=== PATIENT | female | born 1935 | race African-American/Black ===

== ENCOUNTER → 2016-04-13 | Outpatient (CLI) | payer MEDICARE | LOC: WI 13:10 | PROVIDERS: ATTEND Internal Medicine Geriatric Medicine | DX: Z12.31 Encounter for screening mammogram for malignant neoplasm of breast (principal) | CPT/HCPCS: 77067; G0202 ==

== ENCOUNTER → 2017-08-04 | Outpatient (CLI) | payer MEDICARE ==
--- NOTE | 2017-08-09 17:07 | RADIOLOGY REPORT (SQ) ---
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 Coronal T2/HASTE imaging. CONTRAST TYPE AND DOSE: 15 mL Multihance. RENAL FUNCTION: Estimated GFR 55 LIMITATIONS: None. 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 SEGMENTATION: No transitional anatomy. The lowest well-developed disc space is labeled L5-S1. ALIGNMENT: Minimal anterolisthesis of L4 over L5. VERTEBRAE: Intact. No fractures. BONE MARROW: Age-appropriate fatty marrow changes DISC SIGNAL: Diffuse decreased T2 weighted intervertebral disc signal POSTERIOR ELEMENTS: Post bilateral laminectomy at L5 HARDWARE: Bilateral transpedicular screws with dorsal fixation plates at L5 and S1. CORD AND CONUS: Normal in size and signal intensity. Conus at the appropriate level. SOFT TISSUES: No aortic aneurysm seen. No bulky retroperitoneal adenopathy or mass. No paraspinal mas s or fluid. T11-12: Unremarkable T12-L1: Unremarkable L1-L2: Unremarkable L2-L3: Mild central canal stenosis results from broad diffuse posterior disc bulging and bulky bilate ral facet and ligament hypertrophy. There is moderate to high-grade right foraminal narrowing and so me contrast enhancement of the right L2 nerve root. No significant left foraminal stenosis or left n erve root impingement. L3-L4: High-grade central canal stenosis is present at L3-4 related to broad diffuse posterior disc b ulging and bulky bilateral facet and ligament hypertrophy with prominent dorsal epidural fat. There is effacement of the CSF around the lumbar nerve roots best shown on sagittal T2 image 11. Moderate bilateral foraminal narrowing is present without definite exit L3 nerve root impingement. L4-L5: Mild grade 1 anterolisthesis of L4 over L5 is present. This finding along with broad diffuse disc bulge and bulky bilateral facet and ligament hypertrophy causes moderate central canal stenosis, best shown on axial T2 image 27. High-grade right and moderate left foraminal narrowing is present. There is right-sided L4 nerve root enhancement. L5-S1: Post bilateral laminectomy with disc space prosthesis and bilateral transpedicular screws with dorsal fixation plates. No central stenosis. Mild bilateral foraminal narrowing without definite e xiting L5 nerve root impingement. SACRUM: Visualized upper sacrum intact. ENHANCEMENT: Right L2 nerve root, right L4 nerve root enhancement. OTHER: No other significant findings. IMPRESSION: High-grade central canal stenosis at L3-4 Moderate central canal stenosis at L4-5 High-grade Right foraminal stenosis at L2-3 and L4-5. TECHNICAL DOCUMENTATION: JOB ID: [id number] [employer]- All Rights Reserved Reading location - IP/workstation name: [email or web address]
== END ==
LOC: RAD 19:59
PROVIDERS: ATTEND Physician Assistant
DX: M54.16 Radiculopathy, lumbar region (principal)
CPT/HCPCS: 72158; 82565

== ENCOUNTER → 2018-01-13 | Outpatient (CLI) | payer MEDICARE ==
--- NOTE | 2018-01-13 17:09 | WOMENS IMAGING REPORT ---
EXAM DESCRIPTION: 3D SCREENING MAMMO BILAT COMPLETED DATE/TIME: 01/13/2018 3:00 pm REASON FOR STUDY: ROUTINE BIALTERAL SCREENING;Z12.31 Z12.31 ENCNTR SCREEN MAMMOGRAM FOR MALIGNANT N EOPLASM OF YAN COMPARISON: Multiple since 2011 TECHNIQUE: Standard craniocaudal and mediolateral oblique views of each breast recorded using digita l acquisition and breast tomosynthesis. LIMITATIONS: None. FINDINGS: No masses, calcifications or architectural distortion. No areas of suspicion. Read with the assistance of CAD. .[facility] - R2 Cenova Version 1.3 .[facility] Imaging - R2 Cenova Version 1.3 .[facility] Imaging - R2 Cenova Version 2.4 .[facility] - R2 Cenova Version 2.4 .[facility] - R2 Data Security Coordinator Version 9.2 IMPRESSION: NORMAL MAMMOGRAM. BIRADS 1. BREAST DENSITY: b. There are scattered areas of fibroglandular density. BIRAD: 1 NEGATIVE RECOMMENDATION: ROUTINE SCREENING Please continue yearly bilateral screening mammography/tomosynthesis in December 2018 COMMENT: The patient has been notified of the results by letter per SA requirements. Additional no tification policies are in place for contacting patient with suspicious or incomplete findings. Quality ID #[id number]: The [employer] recommends an annual screening mammogram for women aged 40 years or over. This facility utilizes a reminder system to ensure that all patients receive reminder letters, and/or direct phone calls for appointments. This includes reminders for routine scr eening mammograms, diagnostic mammograms, or other Breast Imaging Interventions when appropriate. Th is patient will be placed in the appropriate reminder system. The [employer] (ACR) has developed recommendations for screening MRI of the breast s in certain patient populations, to be used in conjunction with mammography. Breast MRI surveillanc e may be appropriate for women with more than 20% lifetime risk of developing breast cancer as deter mined by genetic testing, significant family history of the disease, or history of mantle radiation f or Hodgkins Disease. ACR Practice Guidelines 2008. DBT Technology DBT is a type of tomographic mammography. With conventional mammography, overlapping breast tissue ma y make lesions difficult to detect, even with good compression. DBT uses an x-ray tube that rotates a round the breast, taking images at different angles. These images are then combined to create thin sl ices of the breast that the radiologist can view as a 3D reconstruction. The [employer] unit can perform full-field digital mammograms (2D imaging); or DBT (3D imaging); or both, in a combination mode that quickly performs both the mammogram and the tomosynthesis scan while the breast is still compressed. PQRS 6045F: Fluoroscopic imaging is not utilized for breast tomosynthesis. TECHNICAL DOCUMENTATION: FINDING NUMBER: (1) ASSESSMENT: (1) JOB ID: [id number] [employer]- All Rights Reserved Reading location - IP/workstation name: [facility]
== END ==
LOC: WI 14:45
PROVIDERS: ATTEND Internal Medicine Geriatric Medicine
DX: Z12.31 Encounter for screening mammogram for malignant neoplasm of breast (principal)
CPT/HCPCS: 77063; 77067

== ENCOUNTER → 2018-02-27 | Outpatient (CLI) | payer MEDICARE ==
--- NOTE | 2018-02-27 13:37 | RADIOLOGY REPORT (SQ) ---
EXAM DESCRIPTION: L SPINE FLEX/EXT ONLY COMPLETED DATE/TIME: 02/27/2018 1:21 pm REASON FOR STUDY: LUMBAR RADICULOPATHY (M54.16) M54.16 RADICULOPATHY, LUMBAR REGION COMPARISON: None. NUMBER OF VIEWS: Two view. TECHNIQUE: Lateral views of the lumbar spine with flexion and extension. LIMITATIONS: None. FINDINGS: MINERALIZATION: Normal. SEGMENTATION: Normal. No transitional anatomy. ALIGNMENT: Grade 1 anterolisthesis of L4 on L5. FLEXION/EXTENSION: No instability. VERTEBRAE: Maintained height. No fracture or worrisome bone lesion. DISCS: Multilevel disc space narrowing. POSTERIOR ELEMENTS: Pedicles and facets are intact. No pars defect or posterior arch defects. HARDWARE: Posterior hardware at L5-S1. OTHER: No other significant finding. IMPRESSION: GRADE 1 ANTEROLISTHESIS OF L4 ON L5. MULTILEVEL DEGENERATIVE DISC DISEASE. SURGICAL ANN RDWARE. NO INSTABILITY ON FLEXION/EXTENSION. TECHNICAL DOCUMENTATION: JOB ID: [id number] [employer]- All Rights Reserved Reading location - IP/workstation name: [facility]-RR
== END ==
LOC: RAD 12:45
PROVIDERS: ATTEND Specialist
DX: M51.16 Intervertebral disc disorders with radiculopathy, lumbar region (principal)
CPT/HCPCS: 72120

== ENCOUNTER 2018-04-14 08:59 | Inpatient (IN) | payer MEDICARE ==
[2018-04-14] MEDS ORDERED: MORPHINE SULFATE 10 MG/ML INJ IV ONE ×3 (09:46→15:11)
[2018-04-14] MEDS ORDERED: NORMAL SALINE 500 ML IV ONE ×2 (09:46→13:06)
[2018-04-14] MEDS ORDERED: ONDANSETRON HCL INJ/PF 4 MG/2 ML SDV IV ONE (09:46)
[2018-04-14] MEDS ORDERED: DIPHENHYDRAMINE HCL 50 MG/ML VIAL IV ONE (09:47)
[2018-04-14 09:57] LABS: ABSOLUTE EOSINOPHILS # (AUTO) 0.1 10^3/uL (0.0-0.6); ABSOLUTE LYMPHOCYTES (AUTO) 2.5 10^3/uL (0.5-4.7); ABSOLUTE NEUT (AUTO) 11.6 10^3/uL (1.7-8.2); BASOPHILS % (AUTO) 0.3 % (0-2); EOSINOPHILS % (AUTO) 0.8 % (0-6); HEMATOCRIT 29.3 % (36.0-47.0); HEMOGLOBIN 9.6 g/dL (12.0-15.5); LYMPHOCYTES % (AUTO) 16.4 % (13-45); MEAN CORPUSCULAR HEMOGLOBIN 26.1 pg (27.0-33.4); MEAN CORPUSCULAR HGB CONC 32.7 g/dL (32.0-36.0); MEAN CORPUSCULAR VOLUME 80 fl (80-97); MONOCYTES % (AUTO) 6.4 % (3-13); PLATELET COUNT 558 10^3/uL (150-450); RED BLOOD COUNT 3.67 10^6/uL (3.72-5.28); RED CELL DISTRIBUTION WIDTH 15.4 % (11.5-14.0); SEGMENTED NEUTROPHILS % (AUTO) 76.1 % (42-78); TOTAL CELLS COUNTED % (AUTO) 100 %; WHITE BLOOD COUNT 15.3 10^3/uL (4.0-10.5)
[2018-04-14 10:03] LABS: ANION GAP 14 (5-19); BLOOD UREA NITROGEN 18 mg/dL (7-20); CALCIUM 8.9 mg/dL (8.4-10.2); CARBON DIOXIDE 25 mmol/L (22-30); CHLORIDE 93 mmol/L (98-107); GLUCOSE 143 mg/dL (75-110); POTASSIUM 3.6 mmol/L (3.6-5.0)
--- NOTE | 2018-04-14 10:53 | RADIOLOGY REPORT (SQ) ---
EXAM DESCRIPTION: KUB/ABDOMEN (SINGLE VIEW) COMPLETED DATE/TIME: 04/14/2018 10:43 am REASON FOR STUDY: no bp for one week COMPARISON: None. NUMBER OF VIEWS: One view. TECHNIQUE: Supine radiographic image of the abdomen acquired. LIMITATIONS: None. FINDINGS: BOWEL GAS PATTERN: Gas and stool dilated ascending colon measuring up to 10 point 0 cm. N o additional evidence of pathologically dilated loops of bowel. Stool mellitus sigmoid colon. Gas w ithin the distal rectum. CALCIFICATIONS: No radiopaque calculi overlie kidneys or expected course of ureters. Aortic atherosc lerosis. SOFT TISSUES: No evidence of large volume ascites or organomegaly. HARDWARE: Posterior fusion hardware extending from L3-S1. Bilateral iliac vascular stents. BONES: No acute fracture. No worrisome bone lesions. Posterior spinal fusion hardware. OTHER: No other significant finding. IMPRESSION: Mildly dilated gas and stool containing ascending colon. Additional stool noted through out the sigmoid colon. TECHNICAL DOCUMENTATION: JOB ID: [id number] [employer]- All Rights Reserved Reading location - IP/workstation name: [email or web address]
[2018-04-14] MEDS ORDERED: LIDOCAINE 2% URO-JET 5 ML KIT MM ONE (11:22)
[2018-04-14] MEDS ORDERED: LORAZEPAM INJ 2 MG/1 ML VIAL IV ONE (11:22)
[2018-04-14] MEDS ORDERED: MAGNESIUM CITRATE 296 ML BOTTLE PO ONE (13:37)
--- NOTE | 2018-04-14 13:42 | ER Document Report ---
ED General - General Chief Complaint: Back Pain Stated Complaint: BACK PAIN Time Seen by Provider: 04/14/18 09:10 Primary Care Provider: PATRICIA SR MD [Primary Care Provider] - Follow up tomorrow TRAVEL OUTSIDE OF THE [place] IN LAST 30 DAYS: No - HPI Patient complains to provider of: Back pain Notes: Patient coming in for increased back pain patient is coming in from local long-term rehab facility from here for increased back pain patient has a back fusion performed at [facility] on April 04, 2018 at that time patient had postoperative urinary retention and indwelling Cadet catheter was placed patient was discharged to the nursing care facility patient was sent over for increased back pain upon my evaluation patient states pain is coming in waves patient was states that he comes another episode and would not yell and pain. During his episodes patient was moving all 4 extremities. Patient denies any numbness or tingling. Patient states that she has not had a bowel movement approximately 1 week. Patient is on [place] at the rehab facility states that her pain medication is not controlling her pain at this time. Patient denies any nausea vomiting denies any abdominal pain denies any chest pain. Patient is otherwise lying on the left lateral recumbent position upon my evaluation. - Related Data Allergies/Adverse Reactions: tramadol HCl [From [facility]] Allergy (Unknown, Verified 10/18/12 15:46) chest /esophageal discomfort cranberry juice Allergy (Severe, Uncoded 10/18/12 15:46) rash/blisters Past Medical History - Social History Smoking Status: Unknown if Ever Smoked Family History: Reviewed & Not Pertinent Patient has suicidal ideation: No Patient has homicidal ideation: No - Past Medical History Cardiac Medical History: Reports: Hx Hypertension - 3 months meds Denies: Hx Atrial Fibrillation, Hx Congestive Heart Failure, Hx Coronary Artery Disease, Hx Heart Attack, Hx Hypercholesterolemia, Hx Peripheral Vascular Disease, Hx Heart Murmur Neurological Medical History: Denies: Hx Cerebrovascular Accident, Hx Seizures Renal/ Medical History: Denies: Hx End Stage Renal Disease, Hx Kidney Stones, Hx Ovarian Cysts, Hx Peritoneal Dialysis, Hx Pelvic Inflammatory Disease Malignancy Medical History: Denies: Hx Breast Cancer, Hx Cervical Cancer, Hx Leukemia, Hx Ovarian Cancer GI Medical History: Reports: Hx Gastroesophageal Reflux Disease, Hx Hiatal Hernia. Denies: Hx Crohn's Disease, Hx Irritable Bowel, Hx Liver Failure, Hx Pancreatitis, Hx Ulcer Musculoskeletal Medical History: Reports Hx Arthritis - back,knees,shoulders,toes, Denies Hx Fibromyalgia, Denies Hx Multiple Sclerosis, Denies Hx Muscular Dystrophy Psychiatric Medical History: Denies: Hx Dementia Traumatic Medical History: Denies: Hx Fractures Infectious Medical History: Denies: Hx HIV Past Surgical History: Reports: Hx Abdominal Surgery, Hx Appendectomy, Hx Bowel Surgery - perforation during laparoscopy, Hx Hysterectomy, Hx Orthopedic Surgery, Hx Tubal Ligation. Denies: Hx Section, Hx Cholecystectomy, Hx Colostomy, Hx Coronary Artery Bypass Graft, Hx Gastric Bypass Surgery, Hx Herniorrhaphy, Hx Mastectomy, Hx Pacemaker, Hx Tonsillectomy - Immunizations Hx Diphtheria, Pertussis, Tetanus Vaccination: Yes Review of Systems - Review of Systems Constitutional: No symptoms reported EENT: No symptoms reported Cardiovascular: No symptoms reported Respiratory: No symptoms reported Gastrointestinal: No symptoms reported Genitourinary: No symptoms reported Female Genitourinary: No symptoms reported Musculoskeletal: Back pain Skin: No symptoms reported Hematologic/Lymphatic: No symptoms reported Neurological/Psychological: No symptoms reported -: Yes All other systems reviewed and negative Physical Exam - Vital signs Vitals: BP Pulse Ox 143/86 H 99 04/14/18 09:05 04/14/18 09:05 Interpretation: Normal - General General appearance: Appears well, Alert - HEENT Head: Normocephalic, Atraumatic Eyes: Normal Conjunctiva: Normal Cornea: Normal Pupils: PERRL Pharynx: Normal Neck: Normal. No: Brudzinski, Meningismus - Respiratory Respiratory status: No respiratory distress Chest status: Nontender Breath sounds: Normal Chest palpation: Normal - Cardiovascular Rhythm: Regular Heart sounds: Normal auscultation Murmur: No - Abdominal Inspection: Normal Distension: No distension Bowel sounds: Normal Tenderness: Nontender Organomegaly: No organomegaly - Rectal Notes: Rectal tone is intact intact patient does complain of pain when performing the rectal examination sensation is intact around the perianal region. There is no stool impaction - Back Back: Normal, Nontender Notes: Midline surgical incision well-healed no signs of any purulent drainage no signs of infection - Extremities General upper extremity: Normal inspection, Nontender, Normal color, Normal ROM, Normal temperature General lower extremity: Normal inspection, Nontender, Normal color, Normal ROM, Normal temperature - Neurological Neuro grossly intact: Yes Cognition: Normal Orientation: AAOx4 [place] Coma Scale Eye Opening: Spontaneous [place] Coma Scale Verbal: Oriented [place] Coma Scale Motor: Obeys Commands [place] Coma Scale Total: 15 Speech: Normal Cranial nerves: Normal Motor strength normal: LUE, RUE, LLE, RLE Additional motor exam normals: Equal photograph inspector Babinski reflex: Normal (flexor plantar) Sensory: Normal Knee - Reflex grade: 2 = Normal - Psychological Associated symptoms: Normal affect, Normal mood - Skin Skin Temperature: Warm Skin Moisture: Dry Skin Color: Normal Course - Re-evaluation Re-evalutation: 04/14/18 15:28 Patient laboratory studies shows a slight leukocytosis patient is currently on some steroids. Patient because of the spasticity of her pain and history of no bowel movement in 1 week a KUB was performed this does show dilation of the right side of the colon. Rectal exam was performed looking for signs of a impaction however this was negative. She was given morphine which did seem to help out her pain. Initially presented afebrile was given IV fluids discussed with PCP recommend hydration and initiation of Linzess mag citrate discharged back to the nursing care facility for constipation due to her opiate use. Did initially discuss this with family states understanding. Patient neurologically intact moving all 4 extremities sensation intact no numbness or tingling the perineal region no meningeal signs While waiting for transportation back to nursing care facility patient became increasingly tachycardic. Recheck of the patient's vital signs are now fever of 102.3. Patient does have some slight change in her mental status more confusion which may be due to pain medication versus underlying infectious etiology. Chest x-ray was performed urinalysis performed did recontact PCP who agrees at this time patient will benefit from observation IV antibiotics. Will update family 04/14/18 15:30 - Vital Signs Vital signs: Temp Pulse Resp BP Pulse Ox 102.4 F H 123 H 24 H 146/68 H 100 04/14/18 15:06 04/14/18 09:18 04/14/18 11:02 04/14/18 10:04 04/14/18 11:12 - Laboratory Result Diagrams: 04/14/18 09:09 04/14/18 09:09 Laboratory results interpreted by me: 04/14/18 04/14/18 09:09 09:09 WBC 15.3 H RBC 3.67 L Hgb 9.6 L Hct 29.3 L MCH 26.1 L RDW 15.4 H Plt Count 558 H Absolute Neutrophils 11.6 H Sodium 132.0 L Chloride 93 L Est GFR (Non-Af Amer) 54 L Glucose 143 H Discharge - Discharge Clinical Impression: Postoperative back pain, Constipation due to opioid therapy, pneumonia right sided Fever Qualifiers: Fever type: unspecified Qualified Code(s): R50.9 - Fever, unspecified Condition: Good Disposition: ADMITTED OBSERVATION Admitting Provider: [facility] Admitted: Telemetry Instructions: Chronic Back Pain ([facility]), Constipation ([facility]) Additional Instructions: Patient was seen and worked up here in ER. Physical examination does not reveal any acute neurological findings. Patient is moving her lower extremities deep tendon reflexes are intact Babinski is appropriate. Patient's abdominal x-ray shows marked constipation. Rectal examination did not reveal any rectal impaction of stool The case was discussed with Dr. Sr will agree to get the patient back citrate and also start the patient on Linzess. Prescriptions: Linaclotide [Linzess] 72 mcg PO DAILY #14 capsule Referrals: PATRICIA SR MD [Primary Care Provider] - Follow up tomorrow
[2018-04-14] MEDS ORDERED: ACETAMINOPHEN 325 MG SUPP.RECT PR ONE (15:10)
[2018-04-14] MEDS ORDERED: NORMAL SALINE 1000 ML 1,000 ML IV ONE (15:25)
--- NOTE | 2018-04-14 15:34 | RADIOLOGY REPORT (SQ) ---
EXAM DESCRIPTION: CHEST SINGLE VIEW COMPLETED DATE/TIME: 04/14/2018 3:23 pm REASON FOR STUDY: sob COMPARISON: None. EXAM PARAMETERS: NUMBER OF VIEWS: One view. TECHNIQUE: Single frontal radiographic view of the chest acquired. RADIATION DOSE: NA LIMITATIONS: None. FINDINGS: LUNGS AND PLEURA: Patchy right mid lung airspace disease. Likely trace right effusion. N o pneumothorax. MEDIASTINUM AND HILAR STRUCTURES: No masses. Contour normal. HEART AND VASCULAR STRUCTURES: Normal heart size. Atherosclerotic aorta. BONES: No acute findings. HARDWARE: None in the chest. OTHER: No other significant finding. IMPRESSION: Patchy opacities within the right mid lung suggestive of pneumonia. TECHNICAL DOCUMENTATION: JOB ID: [id number] [employer]- All Rights Reserved Reading location - IP/workstation name: [email or web address]
[2018-04-14] MEDS ORDERED: LEVOFLOXACIN 500 MG/D5W RTU 500 MG/100 ML RTUPB IV ONE (15:35)
[2018-04-14] MEDS ORDERED: METOCLOPRAMIDE HCL INJ/PF 10 MG/2 ML SDV IV ONE (15:58)
[2018-04-14] MEDS ORDERED: HYDROCODONE/ACETAMINOPHEN 5-325 MG TABLET PO PRN (18:13)
[2018-04-14] MEDS ORDERED: VANCOMYCIN HCL 0 MG in DEXTROSE 5%-WATER 250 ML IV NR (18:15)
[2018-04-14 18:28] LABS: APPEARANCE,URINE CLOUDY; BILIRUBIN,URINE NEGATIVE (NEGATIVE); COLOR,URINE YELLOW; GLUCOSE, URINE NEGATIVE (NEGATIVE); KETONES,URINE NEGATIVE (NEGATIVE); LEUKOCYTE ESTERASE,URINE MODERATE (NEGATIVE); NITRITE,URINE POSITIVE (NEGATIVE); PROTEIN,URINE 30 mg/dL (NEGATIVE); TRIPLE PHOSPHATE CRYSTAL,URINE MANY /HPF; URINE SPECIFIC GRAVITY 1.014
[2018-04-14] MEDS ORDERED: POLYETHYLENE GLYCOL 3350 POWDER 17 GM/1 PACKET PO SCH (19:00)
[2018-04-14] MEDS: NORMAL SALINE 1000 ML 1,000 ML IV PRN (20:28)
[2018-04-14] MEDS ORDERED: VANCOMYCIN HCL 1,500 MG in DEXTROSE 5%-WATER 250 ML IV SCH (22:00)
[2018-04-14] MEDS: LUBIPROSTONE 24 MCG CAPSULE PO SCH (23:27)
[2018-04-14] MEDS: GABAPENTIN 300 MG CAPSULE PO SCH (23:27)
[2018-04-14] MEDS: POLYETHYLENE GLYCOL 3350 POWDER 17 GM/1 PACKET PO SCH (23:28)
[2018-04-14] MEDS ORDERED: METHOCARBAMOL 750 MG TABLET ONE (23:55)
[2018-04-14] MEDS ORDERED: CEFEPIME 2 GM/D5W RTU 2 GM/50 ML RTUPB IV ONE (23:55)
[2018-04-15] MEDS: METHOCARBAMOL 750 MG TABLET PO SCH ×5 (00:21→21:23)
[2018-04-15] MEDS: CEFEPIME 2 GM/D5W RTU 2 GM/50 ML RTUPB IV SCH ×3 (00:21→21:22)
[2018-04-15] MEDS: MORPHINE SULFATE 10 MG/ML INJ IV PRN ×4 (00:23→20:26)
[2018-04-15] MEDS: VANCOMYCIN HCL 1,500 MG in DEXTROSE 5%-WATER 250 ML IV SCH ×2 (01:31→22:14)
[2018-04-15] MEDS: POLYETHYLENE GLYCOL 3350 POWDER 17 GM/1 PACKET PO SCH ×2 (02:47→06:07)
[2018-04-15 05:06] LABS: ABSOLUTE LYMPHOCYTES (AUTO) 0.8 10^3/uL (0.5-4.7); ABSOLUTE MONOCYTES (AUTO) 0.6 10^3/uL (0.1-1.4); ABSOLUTE NEUT (AUTO) 9.4 10^3/uL (1.7-8.2); BASOPHILS % (AUTO) 0.2 % (0-2); HEMOGLOBIN 8.9 g/dL (12.0-15.5); LYMPHOCYTES % (AUTO) 7.7 % (13-45); MEAN CORPUSCULAR HEMOGLOBIN 26.4 pg (27.0-33.4); MEAN CORPUSCULAR HGB CONC 34.2 g/dL (32.0-36.0); MEAN CORPUSCULAR VOLUME 77 fl (80-97); MONOCYTES % (AUTO) 5.4 % (3-13); PLATELET COUNT 408 10^3/uL (150-450); RED BLOOD COUNT 3.37 10^6/uL (3.72-5.28); RED CELL DISTRIBUTION WIDTH 15.4 % (11.5-14.0); SEGMENTED NEUTROPHILS % (AUTO) 86.7 % (42-78); TOTAL CELLS COUNTED % (AUTO) 100 %; WHITE BLOOD COUNT 10.9 10^3/uL (4.0-10.5)
[2018-04-15 05:34] LABS: ALANINE AMINOTRANSFERASE 42 U/L (9-52); ALKALINE PHOSPHATASE 62 U/L (38-126); ANION GAP 10 (5-19); ASPARTATE AMINO TRANSFERASE 87 U/L (14-36); BILIRUBIN,DIRECT 0.5 mg/dL (0.0-0.4); BILIRUBIN,TOTAL 0.9 mg/dL (0.2-1.3); BLOOD UREA NITROGEN 20 mg/dL (7-20); CALCIUM 8.4 mg/dL (8.4-10.2); CARBON DIOXIDE 24 mmol/L (22-30); CHLORIDE 98 mmol/L (98-107); GLUCOSE 140 mg/dL (75-110); POTASSIUM 3.9 mmol/L (3.6-5.0); SODIUM 132.4 mmol/L (137-145); TOTAL PROTEIN 5.9 g/dL (6.3-8.2)
[2018-04-15] MEDS: GABAPENTIN 300 MG CAPSULE PO SCH ×3 (06:07→21:23)
[2018-04-15] MEDS: LANSOPRAZOLE 30 MG TAB.RAP.DR PO SCH (06:07)
[2018-04-15] MEDS ORDERED: LEVOFLOXACIN 500 MG/D5W RTU 500 MG/100 ML RTUPB IV SCH (10:00)
[2018-04-15] MEDS: ENOXAPARIN SODIUM INJ 40 MG/0.4 ML DISP.SYRIN SUBCUT SCH (10:12)
[2018-04-15] MEDS: NORMAL SALINE 1000 ML 1,000 ML IV PRN (10:12)
[2018-04-15] MEDS: LUBIPROSTONE 24 MCG CAPSULE PO SCH ×2 (10:12→21:23)
[2018-04-15] MEDS: LEVOFLOXACIN 750 MG/D5W RTU 750 MG/150 ML RTUPB IV SCH (10:13)
--- NOTE | 2018-04-15 17:20 | PDOC H&P ---
History of Present Illness Admission Date/PCP: 04/14/18 16:10 [facility] Patient complains of: Back pain History of Present Illness: LULY VERDIN is a 82 year old female known to my practice who underwent lumbar fusion surgery for degenerative disc disease with chronic back pain at [facility]. She was transferred to [facility] for short term rehabilitation. She was transferred from the SNF due to her persistent complain of worsening intermittent back pain despite administration of her prescribed pain medication. There was concern about pain medication inadequacy for her pain management. There was report of lack of bowel movement for couple of days. She denied any nausea, vomiting, or abdominal pain. She reported fairly adequate food and fluid intake. Her initial evaluation in the ED was remarkable for abdominal KUB that revealed right sided ascending colon dilatation and rectal examination without fecal impaction. Her initial management include IV fluid and pain medication management. Her subsequent evaluation revealed temperature of 102.3F with leukocytosis and altered mental status. In view of the latter development her initial plan to return to SNF with Linzess and Mag Citrate administration was cancelled and she was advised admission to observation bed. Subsequent chest X ray revealed right middle lobe airspace disease process raising concern for hospital acquired pneumonia in view of her recent surgery and SNF environment exposure. Her morbidities include hypertension, GERD, Osteoarthritis, and degenerative disc disease with chronic back pain s/p spinal fusion surgery on 04/04/2018. Past Medical History Cardiac Medical History: Reports: Hypertension - 3 months meds Denies: Atrial Fibrillation, Congestive Heart Failure, Coronary Artery Disease, Myocardial Infarction, Hyperlipidema, Peripheral Vascular Disease, Heart Murmur Neurological Medical History: Denies: Seizures Renal/ Medical History: Denies: End Stage Renal Disease Malignancy Medical History: Denies: Breast Cancer, Cervical Cancer, Leukemia, Ovarian Cancer GI Medical History: Reports: Gastroesophageal Reflux Disease, Hiatal Hernia Denies: Crohn's Disease Musculoskeltal Medical History: Reports: Arthritis - back,knees,shoulders,toes Denies: Fibromyalgia Psychiatric Medical History: Denies: Dementia Hematology: Reports: Anemia - hx of Denies: Hemophilia, Sickle Cell Disease Infectious Medical History: Denies: HIV Past Surgical History Past Surgical History: Reports: Appendectomy, Hysterectomy, Orthopedic Surgery, Tubal Ligation Denies: Amputation, Section, Cholecystectomy, Colostomy, Coronary Artery Bypass Graft, Gastric Bypass Surgery, Herniorrhaphy, Mastectomy, Pacemaker, Tonsillectomy Social History Smoking Status: Unknown if Ever Smoked Hx Recreational Drug Use: No Hx Prescription Drug Abuse: No Family History Family History: Reviewed & Not Pertinent Parental Family History Reviewed: Yes Children Family History Reviewed: Yes Sibling(s) Family History Reviewed.: Yes Medication/Allergy Home Medications: Gabapentin [Neurontin 300 mg Capsule] 300 mg PO Q8 04/14/18 Hydrochlorothiazide [Hydrodiuril 25 mg Tablet] 25 mg PO DAILY 04/14/18 Hydrocodone/Acetaminophen [[place] 5-325 mg Tablet] 1 tab PO BIDP PRN 04/14/18 Hydroxyzine HCl [Atarax 50 mg Tablet] 50 mg PO TIDP PRN 04/14/18 Meloxicam [Mobic] 15 mg PO DAILY 04/14/18 Pantoprazole Sodium [Protonix] 40 mg PO DAILY 04/14/18 Allergies/Adverse Reactions: tramadol HCl [From Ultram] Allergy (Unknown, Verified 10/18/12 15:46) chest /esophageal discomfort cranberry juice Allergy (Severe, Uncoded 10/18/12 15:46) rash/blisters Review of Systems ROS unobtainable: Due to mental status - at he time of my evalutaion in the ED post IV Morphine and benadryl administration Physical Exam Vital Signs: Temp Pulse Resp BP Pulse Ox 102.4 F H 123 H 24 H 103/66 93 04/14/18 17:12 04/14/18 09:18 04/14/18 16:01 04/14/18 17:01 04/14/18 17:01 Intake & Output 04/13/18 04/14/18 04/15/18 06:59 06:59 06:59 Intake Total 1000 Output Total 530 Balance 470 General appearance: PRESENT: obese Head exam: PRESENT: atraumatic, normocephalic Eye exam: PRESENT: conjunctiva pink, EOMI, PERRLA. ABSENT: scleral icterus Ear exam: PRESENT: normal external ear exam Mouth exam: PRESENT: moist Neck exam: PRESENT: full ROM. ABSENT: carotid bruit, JVD, lymphadenopathy, thyromegaly Respiratory exam: PRESENT: clear to auscultation izabella, decreased breath sounds - at lung bases Cardiovascular exam: PRESENT: RRR. ABSENT: diastolic murmur, rubs, systolic murmur Vascular exam: PRESENT: normal capillary refill. ABSENT: pallor GI/Abdominal exam: PRESENT: normal bowel sounds, soft. ABSENT: distended, guarding, mass, organolmegaly, rebound, tenderness Rectal exam: PRESENT: deferred - completed by ED physician and unrevealing for fecal impaction. Extremities exam: ABSENT: pedal edema Neurological exam: PRESENT: altered - probably due to administered pain medication and Benadryl. Psychiatric exam: PRESENT: other - occasionally scream out in pain.. ABSENT: agitated Skin exam: PRESENT: dry, warm, other - back surgical site healing satisfactorily. Results Laboratory Results: 04/14/18 09:09 04/14/18 09:09 04/14/18 04/14/18 09:09 09:09 WBC 15.3 H RBC 3.67 L Hgb 9.6 L Hct 29.3 L MCV 80 MCH 26.1 L MCHC 32.7 RDW 15.4 H Plt Count 558 H Seg Neutrophils % 76.1 Lymphocytes % 16.4 Monocytes % 6.4 Eosinophils % 0.8 Basophils % 0.3 Absolute Neutrophils 11.6 H Absolute Lymphocytes 2.5 Absolute Monocytes 1.0 Absolute Eosinophils 0.1 Absolute Basophils 0.0 Sodium 132.0 L Potassium 3.6 Chloride 93 L Carbon Dioxide 25 Anion Gap 14 BUN 18 Creatinine 0.99 Est GFR ( Amer) > 60 Est GFR (Non-Af Amer) 54 L Glucose 143 H Calcium 8.9 Impressions: KUB X-Ray 04/14/18 10:21 IMPRESSION: Mildly dilated gas and stool containing ascending colon. Additional stool noted throughout the sigmoid colon. Chest X-Ray 04/14/18 15:06 IMPRESSION: Patchy opacities within the right mid lung suggestive of pneumonia. Assessment & Plan - Diagnosis (1) Constipation due to opioid therapy Is this a current diagnosis for this admission?: Yes Plan: I will start her on Amitiza. she will receive Miralax 17 gm po x 3 doses total. Continue on IV fluid support. (2) Lobar pneumonia, unspecified organism Is this a current diagnosis for this admission?: Yes Plan: Start on IV levofloxacin, Cefepime and Vancomycin coverage for probable Hospital Acquired pneumonia in view of her recent surgery and SNF placement. (3) Postoperative back pain Is this a current diagnosis for this admission?: Yes Plan: Maintain on IV Morphine until she is awake and able to tolerate oral pain medication administration. (4) HTN (hypertension) Qualifiers: Hypertension type: essential hypertension Qualified Code(s): I10 - Essential (primary) hypertension Is this a current diagnosis for this admission?: Yes Plan: Continue on preadmission medication and monitor blood pressure indices. (5) GERD (gastroesophageal reflux disease) Qualifiers: Esophagitis presence: without esophagitis Qualified Code(s): K21.9 - Gastro-esophageal reflux disease without esophagitis Is this a current diagnosis for this admission?: Yes Plan: Maintain on PPI prophylactic therapy while on admission. - Time Time Spent: 50 to 70 Minutes Medications reviewed and adjusted accordingly: Yes Anticipated discharge: SNF - for short term rehabilitation. - Inpatient Certification Based on my medical assessment, after consideration of the patient's comorbidities, presenting symptoms, or acuity I expect that the services needed warrant INPATIENT care.: Yes I certify that my determination is in accordance with my understanding of Medicare's requirements for reasonable and necessary INPATIENT services [42 CFR 412.3e].: Yes Medical Necessity: Significant Comorbidiites Make Outpatient Treatment Too Risky, Need Close Monitoring Due to Risk of Patient Decompensation, Need For IV Fluids, Need For Continuous Telemetry Monitoring, Need for Pain Control, Need for IV Antibiotics, Risk of Complication if Not Cared For in Hospital, Risk of Diagnosis Which Will Require Inpatient Eval/Care/Monitoring Post Hospital Care: D/C or Transfer Summary - Plan Summary Plan Summary: See admitting attending physician orders a per above outlined care plan.
[2018-04-16] MEDS: NORMAL SALINE 1000 ML 1,000 ML IV PRN ×2 (01:03→15:03)
[2018-04-16] MEDS: GABAPENTIN 300 MG CAPSULE PO SCH ×3 (05:26→21:21)
[2018-04-16] MEDS: LANSOPRAZOLE 30 MG TAB.RAP.DR PO SCH (05:26)
[2018-04-16] MEDS: LEVOFLOXACIN 750 MG/D5W RTU 750 MG/150 ML RTUPB IV SCH (09:18)
[2018-04-16] MEDS: ENOXAPARIN SODIUM INJ 40 MG/0.4 ML DISP.SYRIN SUBCUT SCH (09:18)
[2018-04-16] MEDS: METHOCARBAMOL 750 MG TABLET PO SCH ×4 (09:18→21:21)
[2018-04-16] MEDS: LUBIPROSTONE 24 MCG CAPSULE PO SCH ×2 (09:18→21:21)
--- NOTE | 2018-04-16 10:04 | PDOC PROGRESS REPORT ---
Subjective Progress Note for:: 04/15/18 Subjective:: Patient demonstrate improvement in her lucidness. She recognized children and spouse at bedside. She had bowel movement after administration of soap sub enema earlier today. No nausea, vomiting, or abdominal pain. She denied chest pain or difficulty with breathing. Reason For Visit: HOSPITAL ACQUIRED LOBAR PNEUMONIA, OPIOD Physical Exam Vital Signs: Temp Pulse Resp BP Pulse Ox 98.6 F 108 H 20 99/49 L 92 04/15/18 11:36 04/15/18 11:36 04/15/18 11:36 04/15/18 11:36 04/15/18 11:36 Intake & Output 04/14/18 04/15/18 04/16/18 06:59 06:59 06:59 Intake Total 3033 200 Output Total 530 Balance 2503 200 Weight 92.2 kg General appearance: PRESENT: no acute distress, obese Head exam: PRESENT: atraumatic, normocephalic Eye exam: PRESENT: conjunctiva pink, EOMI, PERRLA. ABSENT: scleral icterus Ear exam: PRESENT: normal external ear exam Mouth exam: PRESENT: moist Respiratory exam: PRESENT: clear to auscultation izabella Cardiovascular exam: PRESENT: RRR. ABSENT: diastolic murmur, rubs, systolic murmur Vascular exam: PRESENT: normal capillary refill, pallor GI/Abdominal exam: PRESENT: normal bowel sounds, soft. ABSENT: distended, guarding, mass, organolmegaly, rebound, tenderness Extremities exam: ABSENT: pedal edema Musculoskeletal exam: PRESENT: normal inspection Neurological exam: PRESENT: alert, awake, oriented to person, oriented to place, oriented to time, oriented to situation, CN II-XII grossly intact. ABSENT: mot or sensory deficit Psychiatric exam: PRESENT: appropriate affect, normal mood. ABSENT: homicidal ideation, suicidal ideation Skin exam: PRESENT: dry, warm Results Laboratory Results: 04/15/18 04:32 04/15/18 04:32 04/14/18 04/15/18 04/15/18 18:07 04:32 04:32 WBC 10.9 H RBC 3.37 L Hgb 8.9 L Hct 26.0 L MCV 77 L MCH 26.4 L MCHC 34.2 RDW 15.4 H Plt Count 408 Seg Neutrophils % 86.7 H Lymphocytes % 7.7 L Monocytes % 5.4 Eosinophils % 0.0 Basophils % 0.2 Absolute Neutrophils 9.4 H Absolute Lymphocytes 0.8 Absolute Monocytes 0.6 Absolute Eosinophils 0.0 Absolute Basophils 0.0 Sodium 132.4 L Potassium 3.9 Chloride 98 Carbon Dioxide 24 Anion Gap 10 BUN 20 Creatinine 0.96 Est GFR ( Amer) > 60 Est GFR (Non-Af Amer) 56 L Glucose 140 H Calcium 8.4 Total Bilirubin 0.9 AST 87 H ALT 42 Alkaline Phosphatase 62 Total Protein 5.9 L Albumin 3.0 L Urine Color YELLOW Urine Appearance CLOUDY Urine pH 9.0 Ur Specific [place] 1.014 Urine Protein 30 H Urine Glucose (UA) NEGATIVE Urine Ketones NEGATIVE Urine Blood MODERATE H Urine Nitrite POSITIVE H Ur Leukocyte Esterase MODERATE H Urine WBC (Auto) 1 Urine RBC (Auto) 5 Impressions: KUB X-Ray 04/14/18 10:21 IMPRESSION: Mildly dilated gas and stool containing ascending colon. Additional stool noted throughout the sigmoid colon. Chest X-Ray 04/14/18 15:06 IMPRESSION: Patchy opacities within the right mid lung suggestive of pneumonia. Assessment & Plan - Diagnosis (1) Lobar pneumonia, unspecified organism Is this a current diagnosis for this admission?: Yes Plan: Continue antibiotic coverage and fluid support. follow up on culture results. (2) Constipation due to opioid therapy Is this a current diagnosis for this admission?: Yes Plan: Maintain on current medication management. Encourage adequate fluid intake and fiber in food. (3) Postoperative back pain Is this a current diagnosis for this admission?: Yes Plan: Maintain on current medication management with pain medication and muscle relaxer. I will request PT input to evaluate ambulatory safety and rehabilitation. - Time Time Spent with patient: 25-34 minutes Medications reviewed and adjusted accordingly: Yes Anticipated discharge: SNF - for short term rehabilitation. Within: Other - Inpatient Certification Based on my medical assessment, after consideration of the patient's comorbidities, presenting symptoms, or acuity I expect that the services needed warrant INPATIENT care.: Yes I certify that my determination is in accordance with my understanding of Medicare's requirements for reasonable and necessary INPATIENT services [42 CFR 412.3e].: Yes Medical Necessity: Significant Comorbidiites Make Outpatient Treatment Too Risky, Need Close Monitoring Due to Risk of Patient Decompensation, Need For IV Fluids, Need For Continuous Telemetry Monitoring, Need for IV Antibiotics, Risk of Complication if Not Cared For in Hospital, Risk of Diagnosis Which Will Require Inpatient Eval/Care/Monitoring Post Hospital Care: D/C or Transfer Summary - Plan Summary Plan Summary: See attending physician orders as per above outlined care plan.
--- NOTE | 2018-04-16 10:08 | PDOC PROGRESS REPORT ---
Subjective Progress Note for:: 04/16/18 Subjective:: She still complain about back pain and inability to get out f bed for couple of days. No chest pain or difficulty with breathing. PO intake remain poor. Bowel movement is improving. Reason For Visit: HOSPITAL ACQUIRED LOBAR PNEUMONIA, OPIOD Physical Exam Vital Signs: Temp Pulse Resp BP Pulse Ox 98.6 F 103 H 18 123/56 L 94 04/16/18 08:24 04/16/18 08:24 04/16/18 08:24 04/16/18 08:24 04/16/18 08:24 Intake & Output 04/15/18 04/16/18 04/17/18 06:59 06:59 06:59 Intake Total 3033 2410 Output Total 530 1501 Balance 2503 909 Weight 92.2 kg 92.2 kg Physical Exam: General appearance: PRESENT: no acute distress, obese Head exam: PRESENT: atraumatic, normocephalic Eye exam: PRESENT: conjunctiva pink, EOMI, PERRLA. ABSENT: pallor, scleral icterus Ear exam: PRESENT: normal external ear exam Mouth exam: PRESENT: moist Respiratory exam: PRESENT: clear to auscultation izabella Cardiovascular exam: PRESENT: RRR. ABSENT: diastolic murmur, rubs, systolic murmur GI/Abdominal exam: PRESENT: normal bowel sounds, soft. ABSENT: distended, guarding, mass, organomegaly, rebound, tenderness Extremities exam: ABSENT: pedal edema Musculoskeletal exam: PRESENT: normal inspection Neurological exam: PRESENT: alert, awake, oriented to person, oriented to place, oriented to time, oriented to situation, CN II-XII grossly intact. ABSENT: motor sensory deficit Psychiatric exam: PRESENT: appropriate affect, normal mood. ABSENT: homicidal ideation, suicidal ideation Skin exam: PRESENT: dry, warm Results Laboratory Results: 04/15/18 04:32 04/15/18 04:32 Impressions: KUB X-Ray 04/14/18 10:21 IMPRESSION: Mildly dilated gas and stool containing ascending colon. Additional stool noted throughout the sigmoid colon. Chest X-Ray 04/14/18 15:06 IMPRESSION: Patchy opacities within the right mid lung suggestive of pneumonia. Assessment & Plan - Diagnosis (1) Lobar pneumonia, unspecified organism Is this a current diagnosis for this admission?: Yes (2) Constipation due to opioid therapy Is this a current diagnosis for this admission?: Yes (3) Postoperative back pain Is this a current diagnosis for this admission?: Yes - Time Time Spent with patient: 25-34 minutes Medications reviewed and adjusted accordingly: Yes Anticipated discharge: SNF Within: Other - Inpatient Certification Based on my medical assessment, after consideration of the patient's comorbidities, presenting symptoms, or acuity I expect that the services needed warrant INPATIENT care.: Yes I certify that my determination is in accordance with my understanding of Medicare's requirements for reasonable and necessary INPATIENT services [42 CFR 412.3e].: Yes Medical Necessity: Significant Comorbidiites Make Outpatient Treatment Too Risky, Need Close Monitoring Due to Risk of Patient Decompensation, Need For IV Fluids, Need for Pain Control, Need for IV Antibiotics, Risk of Complication if Not Cared For in Hospital, Risk of Diagnosis Which Will Require Inpatient Eval/Care/Monitoring Post Hospital Care: D/C or Transfer Summary - Plan Summary Plan Summary: Continue current antibiotic coverage. Request PT involvement for mobility efforts.
[2018-04-16] MEDS: CEFEPIME 2 GM/D5W RTU 2 GM/50 ML RTUPB IV SCH ×2 (10:51→21:21)
[2018-04-16] MEDS: MORPHINE SULFATE 10 MG/ML INJ IV PRN ×2 (15:46→22:43)
[2018-04-16] MEDS: VANCOMYCIN HCL 1,500 MG in DEXTROSE 5%-WATER 250 ML IV SCH (22:36)
[2018-04-17] MEDS: MORPHINE SULFATE 10 MG/ML INJ IV PRN ×2 (02:23→10:22)
[2018-04-17] MEDS: LANSOPRAZOLE 30 MG TAB.RAP.DR PO SCH (06:20)
[2018-04-17] MEDS: GABAPENTIN 300 MG CAPSULE PO SCH ×3 (06:20→22:10)
[2018-04-17] MEDS: NORMAL SALINE 1000 ML 1,000 ML IV PRN ×2 (06:22→18:01)
[2018-04-17] MEDS: LEVOFLOXACIN 750 MG/D5W RTU 750 MG/150 ML RTUPB IV SCH (10:13)
[2018-04-17] MEDS: ENOXAPARIN SODIUM INJ 40 MG/0.4 ML DISP.SYRIN SUBCUT SCH (10:13)
[2018-04-17] MEDS: LUBIPROSTONE 24 MCG CAPSULE PO SCH ×2 (10:13→22:10)
[2018-04-17] MEDS: METHOCARBAMOL 750 MG TABLET PO SCH ×4 (10:13→22:10)
[2018-04-17] MEDS: CEFEPIME 2 GM/D5W RTU 2 GM/50 ML RTUPB IV SCH (11:53)
--- NOTE | 2018-04-17 12:42 | PDOC PROGRESS REPORT ---
Subjective Progress Note for:: 04/17/18 Subjective:: Patient is a total assist as per PT evaluation today. She reported satisfactory bowel movement but continue to experience lower back pain. No chest pain or difficulty with breathing. No nausea, vomiting or abdominal pain. Reason For Visit: HOSPITAL ACQUIRED LOBAR PNEUMONIA, OPIOID INDUCED CONSTIPATION Physical Exam Vital Signs: Temp Pulse Resp BP Pulse Ox 97.9 F 107 H 18 105/47 L 90 L 04/17/18 11:33 04/17/18 11:33 04/17/18 11:33 04/17/18 11:33 04/17/18 11:33 Intake & Output 04/16/18 04/17/18 04/18/18 06:59 06:59 06:59 Intake Total 2410 4300 200 Output Total 1501 1900 450 Balance 909 2400 -250 Weight 92.2 kg 95.9 kg Physical Exam: General appearance: PRESENT: no acute distress, obese Head exam: PRESENT: atraumatic, normocephalic Eye exam: PRESENT: conjunctiva pink, EOMI, PERRLA. ABSENT: pallor, scleral icterus Ear exam: PRESENT: normal external ear exam Mouth exam: PRESENT: moist Respiratory exam: PRESENT: clear to auscultation izabella Cardiovascular exam: PRESENT: RRR. ABSENT: diastolic murmur, rubs, systolic murmur GI/Abdominal exam: PRESENT: normal bowel sounds, soft. ABSENT: distended, guarding, mass, organomegaly, rebound, tenderness Extremities exam: ABSENT: pedal edema Musculoskeletal exam: PRESENT: normal inspection Neurological exam: PRESENT: alert, awake, oriented to person, oriented to place, oriented to time, oriented to situation, CN II-XII grossly intact. ABSENT: motor sensory deficit Psychiatric exam: PRESENT: appropriate affect, normal mood. ABSENT: homicidal ideation, suicidal ideation Skin exam: PRESENT: lumbar fusion surgery site dressing is satisfactory. dry, warm Results Laboratory Results: 04/15/18 04:32 04/15/18 04:32 Impressions: KUB X-Ray 04/14/18 10:21 IMPRESSION: Mildly dilated gas and stool containing ascending colon. Additional stool noted throughout the sigmoid colon. Chest X-Ray 04/14/18 15:06 IMPRESSION: Patchy opacities within the right mid lung suggestive of pneumonia. Assessment & Plan - Diagnosis (1) Lobar pneumonia, unspecified organism Is this a current diagnosis for this admission?: Yes (2) Constipation due to opioid therapy Is this a current diagnosis for this admission?: Yes (3) Postoperative back pain Is this a current diagnosis for this admission?: Yes - Time Time Spent with patient: 25-34 minutes Medications reviewed and adjusted accordingly: Yes Anticipated discharge: SNF Within: Other - Inpatient Certification Based on my medical assessment, after consideration of the patient's comorbidities, presenting symptoms, or acuity I expect that the services needed warrant INPATIENT care.: Yes I certify that my determination is in accordance with my understanding of Medicare's requirements for reasonable and necessary INPATIENT services [42 CFR 412.3e].: Yes Medical Necessity: Significant Comorbidiites Make Outpatient Treatment Too Risky, Need Close Monitoring Due to Risk of Patient Decompensation, Need For IV Fluids, Need For Continuous Telemetry Monitoring, Need for Pain Control, Need for IV Antibiotics, Risk of Complication if Not Cared For in Hospital, Risk of Diagnosis Which Will Require Inpatient Eval/Care/Monitoring Post Hospital Care: D/C or Transfer Summary - Plan Summary Plan Summary: Continue current antibiotic therapy. D/C IV Morphine. Maintain on Robaxin therapy for muscle spasm pain management. Stat on Dilaudid 2 mg p.o qid prn for pain management. Follow up on blood culture findings. Continue to encourage participation in physical therapy.
[2018-04-17] MEDS: HYDROMORPHONE HCL 2 MG TABLET PO PRN ×2 (14:04→22:47)
[2018-04-17] MEDS: CEFEPIME HCL 2 GM in DEXTROSE 5%-WATER 50 ML IV SCH (22:10)
[2018-04-18] MEDS: GABAPENTIN 300 MG CAPSULE PO SCH ×3 (06:34→22:06)
[2018-04-18] MEDS: HYDROMORPHONE HCL 2 MG TABLET PO PRN ×4 (06:34→22:07)
[2018-04-18] MEDS: NORMAL SALINE 1000 ML 1,000 ML IV PRN ×2 (06:34→18:46)
[2018-04-18] MEDS: LANSOPRAZOLE 30 MG TAB.RAP.DR PO SCH (06:34)
[2018-04-18] MEDS: CEFEPIME HCL 2 GM in DEXTROSE 5%-WATER 50 ML IV SCH ×2 (10:41→22:06)
[2018-04-18] MEDS: LEVOFLOXACIN 750 MG/D5W RTU 750 MG/150 ML RTUPB IV SCH (10:42)
[2018-04-18] MEDS: METHOCARBAMOL 750 MG TABLET PO SCH ×4 (10:43→22:06)
[2018-04-18] MEDS: LUBIPROSTONE 24 MCG CAPSULE PO SCH ×2 (10:43→22:06)
[2018-04-18] MEDS: ENOXAPARIN SODIUM INJ 40 MG/0.4 ML DISP.SYRIN SUBCUT SCH (10:43)
--- NOTE | 2018-04-18 17:22 | PDOC PROGRESS REPORT ---
Subjective Progress Note for:: 04/18/18 Subjective:: Patient continue to express back pain from muscle spasms. She was able to sit up in chair earlier today. There is nursing report of need for breakthrough pain medication. No chest pain or difficulty with breathing. No nausea, vomiting or abdominal pain. Patient reported no bowel movement since last enema. Reason For Visit: HOSPITAL ACQUIRED LOBAR PNEUMONIA, OPIOD Physical Exam Vital Signs: Temp Pulse Resp BP Pulse Ox 98.4 F 95 24 H 134/84 H 99 04/18/18 15:17 04/18/18 15:17 04/18/18 15:17 04/18/18 15:17 04/18/18 15:17 Intake & Output 04/17/18 04/18/18 04/19/18 06:59 06:59 06:59 Intake Total 4300 2670 200 Output Total 1900 2425 550 Balance 2400 245 -350 Weight 95.9 kg 98.1 kg Physical Exam: General appearance: PRESENT: no acute distress, obese Head exam: PRESENT: atraumatic, normocephalic Mouth exam: PRESENT: moist Respiratory exam: PRESENT: clear to auscultation izabella Cardiovascular exam: PRESENT: RRR. ABSENT: diastolic murmur, rubs, systolic murmur GI/Abdominal exam: PRESENT: normal bowel sounds, soft. ABSENT: distended, guarding, mass, organomegaly, rebound, tenderness Extremities exam: ABSENT: pedal edema Musculoskeletal exam: PRESENT: normal inspection Neurological exam: PRESENT: alert, awake, oriented to person, oriented to place, oriented to time, oriented to situation, CN II-XII grossly intact. ABSENT: motor sensory deficit Psychiatric exam: PRESENT: appropriate affect, normal mood. ABSENT: homicidal ideation, suicidal ideation Skin exam: PRESENT: lumbar fusion surgery site dressing is satisfactory. dry, warm Results Laboratory Results: 04/15/18 04:32 04/15/18 04:32 Impressions: KUB X-Ray 04/14/18 10:21 IMPRESSION: Mildly dilated gas and stool containing ascending colon. Additional stool noted throughout the sigmoid colon. Chest X-Ray 04/14/18 15:06 IMPRESSION: Patchy opacities within the right mid lung suggestive of pneumonia. Assessment & Plan - Diagnosis (1) Lobar pneumonia, unspecified organism Is this a current diagnosis for this admission?: Yes (2) Constipation due to opioid therapy Is this a current diagnosis for this admission?: Yes (3) Postoperative back pain Is this a current diagnosis for this admission?: Yes - Time Time Spent with patient: 25-34 minutes Medications reviewed and adjusted accordingly: Yes Anticipated discharge: SNF Within: Other - Inpatient Certification Based on my medical assessment, after consideration of the patient's comorbidities, presenting symptoms, or acuity I expect that the services needed warrant INPATIENT care.: Yes I certify that my determination is in accordance with my understanding of Medicare's requirements for reasonable and necessary INPATIENT services [42 CFR 412.3e].: Yes Medical Necessity: Significant Comorbidiites Make Outpatient Treatment Too Risky, Need Close Monitoring Due to Risk of Patient Decompensation, Need For IV Fluids, Need For Continuous Telemetry Monitoring, Need for Pain Control, Need for IV Antibiotics, Risk of Complication if Not Cared For in Hospital, Risk of Diagnosis Which Will Require Inpatient Eval/Care/Monitoring Post Hospital Care: D/C or Transfer Summary - Plan Summary Plan Summary: Continue IV Levofloxacin ad Cefepime converge. Blood culture gre gram negative organism in only on bottle. Pending organism identification and sensitivity. Change Dilaudid to 2 mg p0o q 4 hours prn for pain management. Administer soap sob Enema. Add Miralax 17 gm po daily to bowel movement regimen.
[2018-04-18] MEDS: POLYETHYLENE GLYCOL 3350 POWDER 17 GM/1 PACKET PO SCH (18:46)
[2018-04-18] MEDS: DOCUSATE SODIUM 100 MG CAPSULE PO SCH (22:06)
[2018-04-19] MEDS: HYDROMORPHONE HCL 2 MG TABLET PO PRN ×3 (02:30→12:08)
[2018-04-19] MEDS: GABAPENTIN 300 MG CAPSULE PO SCH ×3 (06:03→22:16)
[2018-04-19] MEDS: LANSOPRAZOLE 30 MG TAB.RAP.DR PO SCH (06:03)
[2018-04-19 06:42] LABS: ABSOLUTE EOSINOPHILS # (AUTO) 0.1 10^3/uL (0.0-0.6); ABSOLUTE LYMPHOCYTES (AUTO) 1.3 10^3/uL (0.5-4.7); ABSOLUTE MONOCYTES (AUTO) 1.7 10^3/uL (0.1-1.4); ABSOLUTE NEUT (AUTO) 5.9 10^3/uL (1.7-8.2); BASOPHILS % (AUTO) 0.5 % (0-2); EOSINOPHILS % (AUTO) 1.3 % (0-6); LYMPHOCYTES % (AUTO) 13.9 % (13-45); MEAN CORPUSCULAR HEMOGLOBIN 26.1 pg (27.0-33.4); MEAN CORPUSCULAR HGB CONC 33.9 g/dL (32.0-36.0); MEAN CORPUSCULAR VOLUME 77 fl (80-97); MONOCYTES % (AUTO) 18.4 % (3-13); PLATELET COUNT 429 10^3/uL (150-450); RED BLOOD COUNT 2.99 10^6/uL (3.72-5.28); RED CELL DISTRIBUTION WIDTH 16.2 % (11.5-14.0); SEGMENTED NEUTROPHILS % (AUTO) 65.9 % (42-78); TOTAL CELLS COUNTED % (AUTO) 100 %
[2018-04-19 06:51] LABS: HEMOGLOBIN 7.8 g/dL (12.0-15.5)
[2018-04-19 06:59] LABS: ALANINE AMINOTRANSFERASE 47 U/L (9-52); ALBUMIN 2.3 g/dL (3.5-5.0); ALKALINE PHOSPHATASE 75 U/L (38-126); ANION GAP 5 (5-19); ASPARTATE AMINO TRANSFERASE 56 U/L (14-36); BILIRUBIN,DIRECT 0.4 mg/dL (0.0-0.4); BILIRUBIN,TOTAL 0.7 mg/dL (0.2-1.3); BLOOD UREA NITROGEN 9 mg/dL (7-20); CALCIUM 8.2 mg/dL (8.4-10.2); CARBON DIOXIDE 25 mmol/L (22-30); CHLORIDE 102 mmol/L (98-107); GLUCOSE 89 mg/dL (75-110); POTASSIUM 3.6 mmol/L (3.6-5.0); TOTAL PROTEIN 5.1 g/dL (6.3-8.2)
[2018-04-19] MEDS: ENOXAPARIN SODIUM INJ 40 MG/0.4 ML DISP.SYRIN SUBCUT SCH (10:08)
[2018-04-19] MEDS: POLYETHYLENE GLYCOL 3350 POWDER 17 GM/1 PACKET PO SCH (10:08)
[2018-04-19] MEDS: CEFEPIME HCL 2 GM in DEXTROSE 5%-WATER 50 ML IV SCH (10:08)
[2018-04-19] MEDS: LUBIPROSTONE 24 MCG CAPSULE PO SCH ×2 (10:09→22:16)
[2018-04-19] MEDS: METHOCARBAMOL 750 MG TABLET PO SCH ×4 (10:09→22:17)
[2018-04-19] MEDS: LEVOFLOXACIN 750 MG/D5W RTU 750 MG/150 ML RTUPB IV SCH (10:45)
--- NOTE | 2018-04-19 18:41 | PDOC PROGRESS REPORT ---
Subjective Progress Note for:: 04/19/18 Subjective:: No chest pain or difficulty with breathing. She continue to experience constipation. No nausea, vomiting or abdominal pain. Participation in physical therapy is limited due to her screaming due to back muscle spasm pain. Reason For Visit: HOSPITAL ACQUIRED LOBAR PNEUMONIA, OPIOD Physical Exam Vital Signs: Temp Pulse Resp BP Pulse Ox 97.8 F 99 17 123/50 L 95 04/19/18 15:02 04/19/18 15:02 04/19/18 15:02 04/19/18 15:02 04/19/18 15:02 Intake & Output 04/18/18 04/19/18 04/20/18 06:59 06:59 06:59 Intake Total 2670 2370 218 Output Total 2425 3025 Balance 245 -655 218 Weight 98.1 kg 98.1 kg Physical Exam: General appearance: PRESENT: no acute distress, obese Head exam: PRESENT: atraumatic, normocephalic Mouth exam: PRESENT: moist Respiratory exam: PRESENT: clear to auscultation izabella Cardiovascular exam: PRESENT: RRR. ABSENT: diastolic murmur, rubs, systolic murmur GI/Abdominal exam: PRESENT: normal bowel sounds, soft. ABSENT: distended, guarding, mass, organomegaly, rebound, tenderness Extremities exam: ABSENT: pedal edema Musculoskeletal exam: PRESENT: normal inspection Neurological exam: PRESENT: alert, awake, oriented to person, oriented to place, oriented to time, oriented to situation, CN II-XII grossly intact. ABSENT: motor sensory deficit Psychiatric exam: PRESENT: appropriate affect, normal mood. ABSENT: homicidal ideation, suicidal ideation Skin exam: PRESENT: lumbar fusion surgery site dressing is satisfactory. dry, warm Results Laboratory Results: 04/19/18 06:02 04/19/18 06:02 04/19/18 04/19/18 04/19/18 06:02 06:02 10:42 WBC 9.0 RBC 2.99 L Hgb 7.8 L Hct 23.0 L MCV 77 L MCH 26.1 L MCHC 33.9 RDW 16.2 H Plt Count 429 Seg Neutrophils % 65.9 Lymphocytes % 13.9 Monocytes % 18.4 H Eosinophils % 1.3 Basophils % 0.5 Absolute Neutrophils 5.9 Absolute Lymphocytes 1.3 Absolute Monocytes 1.7 H Absolute Eosinophils 0.1 Absolute Basophils 0.0 Sodium 132.0 L Potassium 3.6 Chloride 102 Carbon Dioxide 25 Anion Gap 5 BUN 9 Creatinine 0.55 Est GFR ( Amer) > 60 Est GFR (Non-Af Amer) > 60 Glucose 89 Calcium 8.2 L Total Bilirubin 0.7 AST 56 H ALT 47 Alkaline Phosphatase 75 Total Protein 5.1 L Albumin 2.3 L Blood Type O POSITIVE Antibody Screen NEGATIVE 04/14/18 18:30 Blood Blood Culture - Final Morganella Morganii Impressions: KUB X-Ray 04/14/18 10:21 IMPRESSION: Mildly dilated gas and stool containing ascending colon. Additional stool noted throughout the sigmoid colon. Chest X-Ray 04/14/18 15:06 IMPRESSION: Patchy opacities within the right mid lung suggestive of pneumonia. Assessment & Plan - Diagnosis (1) Lobar pneumonia, unspecified organism Is this a current diagnosis for this admission?: Yes Plan: Her blood culture grew Morganella Morganii sensitive to Ceftriaxone. (2) Constipation due to opioid therapy Is this a current diagnosis for this admission?: Yes (3) Postoperative back pain Is this a current diagnosis for this admission?: Yes (4) Gram-negative pneumonia Is this a current diagnosis for this admission?: Yes Plan: Continue IV Ceftriaxone coverage. - Time Time Spent with patient: 25-34 minutes Medications reviewed and adjusted accordingly: Yes Anticipated discharge: SNF Within: Other - Inpatient Certification Based on my medical assessment, after consideration of the patient's comorbidities, presenting symptoms, or acuity I expect that the services needed warrant INPATIENT care.: Yes I certify that my determination is in accordance with my understanding of Medicare's requirements for reasonable and necessary INPATIENT services [42 CFR 412.3e].: Yes Medical Necessity: Need Close Monitoring Due to Risk of Patient Decompensation, Need For IV Fluids, Need For Continuous Telemetry Monitoring, Need for Pain Cont rol, Need for IV Antibiotics, Risk of Complication if Not Cared For in Hospital, Risk of Diagnosis Which Will Require Inpatient Eval/Care/Monitoring Post Hospital Care: D/C or Transfer Summary - Plan Summary Plan Summary: Continue IV Ceftriaxone coverage. K-PAD usage for muscle spasm management. Transfuse 2 units PRBC for anemia. Continue all other current medication management.
[2018-04-19] MEDS: DOCUSATE SODIUM 100 MG CAPSULE PO SCH (22:16)
[2018-04-20] MEDS: CEFEPIME HCL 2 GM in DEXTROSE 5%-WATER 50 ML IV SCH ×3 (05:11→22:23)
[2018-04-20] MEDS: GABAPENTIN 300 MG CAPSULE PO SCH ×3 (05:59→22:26)
[2018-04-20] MEDS: LANSOPRAZOLE 30 MG TAB.RAP.DR PO SCH (05:59)
--- NOTE | 2018-04-20 08:00 | PDOC PROGRESS REPORT ---
Subjective Progress Note for:: 04/20/18 Subjective:: No chest pain or difficulty with breathing. She continue to expressed lumbosacral region pain with motion. s/p lumbar spine fusion surgery. No nausea, vomiting or abdominal pain. No fever or chills. Reason For Visit: HOSPITAL ACQUIRED LOBAR PNEUMONIA, OPIOD Physical Exam Vital Signs: Temp Pulse Resp BP Pulse Ox 98.0 F 92 17 149/65 H 97 04/20/18 04:15 04/20/18 07:00 04/20/18 04:15 04/20/18 04:15 04/20/18 04:30 Intake & Output 04/19/18 04/20/18 04/21/18 06:59 06:59 06:59 Intake Total 2370 1661 Output Total 3025 2150 Balance -655 -489 Weight 98.1 kg 99.9 kg Physical Exam: General appearance: PRESENT: no acute distress, obese Head exam: PRESENT: atraumatic, normocephalic Mouth exam: PRESENT: moist Respiratory exam: PRESENT: clear to auscultation izabella Cardiovascular exam: PRESENT: RRR. ABSENT: diastolic murmur, rubs, systolic murmur GI/Abdominal exam: PRESENT: normal bowel sounds, soft. ABSENT: distended, guarding, mass, organomegaly, rebound, tenderness Extremities exam: ABSENT: pedal edema Musculoskeletal exam: PRESENT: normal inspection, expressed lumbosacral spine region tenderness with motion Neurological exam: PRESENT: alert, awake, oriented to person, oriented to place, oriented to time, oriented to situation, CN II-XII grossly intact. ABSENT: motor sensory deficit Psychiatric exam: PRESENT: appropriate affect, normal mood. ABSENT: homicidal ideation, suicidal ideation Skin exam: PRESENT: lumbar fusion surgery site dressing is satisfactory. dry, warm Results Laboratory Results: 04/19/18 06:02 04/19/18 06:02 04/19/18 10:42 Blood Type O POSITIVE Antibody Screen NEGATIVE 04/14/18 18:17 Blood Blood Culture - Final NO GROWTH IN 5 DAYS 04/14/18 18:30 Blood Blood Culture - Final Morganella Morganii Impressions: KUB X-Ray 04/14/18 10:21 IMPRESSION: Mildly dilated gas and stool containing ascending colon. Additional stool noted throughout the sigmoid colon. Chest X-Ray 04/14/18 15:06 IMPRESSION: Patchy opacities within the right mid lung suggestive of pneumonia. Assessment & Plan - Diagnosis (1) Lobar pneumonia, unspecified organism Is this a current diagnosis for this admission?: Yes (2) Constipation due to opioid therapy Is this a current diagnosis for this admission?: Yes (3) Postoperative back pain Is this a current diagnosis for this admission?: Yes (4) Gram-negative pneumonia Is this a current diagnosis for this admission?: Yes - Time Time Spent with patient: 25-34 minutes Medications reviewed and adjusted accordingly: Yes Anticipated discharge: SNF Within: Other - Inpatient Certification Based on my medical assessment, after consideration of the patient's comorbidities, presenting symptoms, or acuity I expect that the services needed warrant INPATIENT care.: Yes I certify that my determination is in accordance with my understanding of Medicare's requirements for reasonable and necessary INPATIENT services [42 CFR 412.3e].: Yes Medical Necessity: Significant Comorbidiites Make Outpatient Treatment Too Risky, Need Close Monitoring Due to Risk of Patient Decompensation, Need For IV Fluids, Need For Continuous Telemetry Monitoring, Need for Pain Control, Need for IV Antibiotics, Risk of Complication if Not Cared For in Hospital, Risk of Diagnosis Which Will Require Inpatient Eval/Care/Monitoring Post Hospital Care: D/C or Transfer Summary - Plan Summary Plan Summary: Obtain lumbar spine CT scan to evaluate for possible hematoma in light of her recent significant anemia. Continue IV Levofloxacin and Cefepime coverage. Maintain on all other current medication management.
--- NOTE | 2018-04-20 09:19 | RADIOLOGY REPORT (SQ) ---
EXAM DESCRIPTION: CT LUMBAR SPINE WITHOUT COMPLETED DATE/TIME: 04/20/2018 8:45 am REASON FOR STUDY: Lumbar fusion surgery persistent pain and anemia J18.1 LOBAR PNEUMONIA, UNSPECIFI ED ORGANISM COMPARISON: Lumbar spine plain films 02/27/2018 MRI lumbar spine 08/04/2017 CT abdomen pelvis 09/06/2012 TECHNIQUE: Axial images acquired through the lumbar spine without intravenous contrast. Images revi ewed with lung, soft tissue and bone windows. Reconstructed coronal and sagittal MPR images reviewed . All images stored on PACS. All CT scanners at this facility use dose modulation, iterative reconstruction, and/or weight based d osing when appropriate to reduce radiation dose to as low as reasonably achievable (ALARA). [facility]: Dose Right [facility]: CareDose [facility]: Dose Right [facility]: Teradose 4D [facility]: [employer] RADIATION DOSE: CT Rad equipment meets quality standard of care and radiation dose reduction techniq ues were employed. CTDIvol: 30.6 mGy. DLP: 870 mGy-cm. mGy. LIMITATIONS: None. FINDINGS: SEGMENTATION: Normal. No transitional anatomy. ALIGNMENT: There is minimal anterolisthesis of L4 over L5, unchanged from MRI 08/04/2017 and plain film s 02/27/2018. VERTEBRAL BODIES: No fractures. No dislocation. No acute findings. DISCS: T11-12, T12-L1, L1-2 are unremarkable. At L2-3, there is vacuum disc phenomenon and disc space loss of height with mild diffuse posterior di sc bulging. This finding along with moderate bilateral facet and ligament hypertrophy causes moderat e central canal stenosis, best shown on axial images 38 through 41. There is moderate bilateral infe rior foraminal narrowing at L2-3 without definite exiting L2 nerve root impingement. At L3-4, artifact from a metallic disc spacer is present. Bilateral laminectomy, with transpedicular screws and dorsal fixation plates. Central canal widely decompressed. Bilateral neural foramina ar e widely decompressed. At L4-5, minimal grade 1 anterolisthesis of L4 over L5 is present. Bilateral laminectomy defect. Me tallic disc spacer and bilateral transpedicular screws with dorsal fixation plates. Bony central can al is decompressed. Bilateral neural foramina are decompressed. At L5-S1, patient is post bilateral laminectomy with disc spacer, bilateral transpedicular screws and dorsal fixation plates. Bony central canal is decompressed, right neural foramen is widely patent. On the left side, there is mild to moderate foraminal narrowing from bony spurring. This is similar compared to MRI 08/04/2017. PEDICLES, TRANSVERSE PROCESSES: No fractures. No dislocation. No acute findings. There is bone gra ft material along the transverse processes from L3 through L5, incompletely incorporated in with the transverse processes. FACETS, POSTERIOR ELEMENTS: No fractures. No dislocation. No spinal stenosis. HARDWARE: None in the spine. VISUALIZED RIBS: No fractures. 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 Moderate central canal stenosis at L2- 3. OTHER: No other significant finding. IMPRESSION: Postsurgical findings from L3-4 through L5-S1 as above. Moderate central canal stenosis at L2-3 TECHNICAL DOCUMENTATION: JOB ID: [id number] Quality ID # [id number]: Final reports with documentation of one or more dose reduction techniques (e.g., Au tomated exposure control, adjustment of the mA and/or kV according to patient size, use of iterative reconstruction technique) 2010 [employer]- All Rights Reserved Reading location - IP/workstation name: [email or web address]
[2018-04-20 09:50] LABS: ABSOLUTE EOSINOPHILS # (AUTO) 0.1 10^3/uL (0.0-0.6); ABSOLUTE LYMPHOCYTES (AUTO) 1.3 10^3/uL (0.5-4.7); ABSOLUTE MONOCYTES (AUTO) 1.4 10^3/uL (0.1-1.4); ABSOLUTE NEUT (AUTO) 5.7 10^3/uL (1.7-8.2); BASOPHILS % (AUTO) 0.3 % (0-2); EOSINOPHILS % (AUTO) 0.8 % (0-6); HEMATOCRIT 30.8 % (36.0-47.0); LYMPHOCYTES % (AUTO) 14.9 % (13-45); MEAN CORPUSCULAR HEMOGLOBIN 26.6 pg (27.0-33.4); MEAN CORPUSCULAR HGB CONC 33.8 g/dL (32.0-36.0); MEAN CORPUSCULAR VOLUME 79 fl (80-97); MONOCYTES % (AUTO) 16.4 % (3-13); PLATELET COUNT 452 10^3/uL (150-450); RED BLOOD COUNT 3.92 10^6/uL (3.72-5.28); RED CELL DISTRIBUTION WIDTH 16.6 % (11.5-14.0); SEGMENTED NEUTROPHILS % (AUTO) 67.6 % (42-78); TOTAL CELLS COUNTED % (AUTO) 100 %; WHITE BLOOD COUNT 8.4 10^3/uL (4.0-10.5)
[2018-04-20 09:57] LABS: HEMOGLOBIN 10.4 g/dL (12.0-15.5)
[2018-04-20] MEDS: POLYETHYLENE GLYCOL 3350 POWDER 17 GM/1 PACKET PO SCH (10:13)
[2018-04-20] MEDS: ENOXAPARIN SODIUM INJ 40 MG/0.4 ML DISP.SYRIN SUBCUT SCH (10:15)
[2018-04-20] MEDS: LEVOFLOXACIN 750 MG/D5W RTU 750 MG/150 ML RTUPB IV SCH (10:15)
[2018-04-20] MEDS: METHOCARBAMOL 750 MG TABLET PO SCH ×4 (10:15→22:25)
[2018-04-20] MEDS: LUBIPROSTONE 24 MCG CAPSULE PO SCH ×3 (10:15→22:29)
[2018-04-20] MEDS: DOCUSATE SODIUM 100 MG CAPSULE PO SCH ×2 (22:21→22:29)
[2018-04-20] MEDS: HYDROMORPHONE HCL 2 MG TABLET PO PRN (22:25)
[2018-04-21] MEDS: GABAPENTIN 300 MG CAPSULE PO SCH ×3 (05:33→22:46)
[2018-04-21] MEDS: LANSOPRAZOLE 30 MG TAB.RAP.DR PO SCH (05:33)
[2018-04-21] MEDS: HYDROMORPHONE HCL 2 MG TABLET PO PRN ×2 (05:33→22:46)
[2018-04-21] MEDS: POLYETHYLENE GLYCOL 3350 POWDER 17 GM/1 PACKET PO SCH (09:30)
[2018-04-21] MEDS: LUBIPROSTONE 24 MCG CAPSULE PO SCH ×2 (09:30→22:54)
[2018-04-21] MEDS: LEVOFLOXACIN 750 MG/D5W RTU 750 MG/150 ML RTUPB IV SCH (09:36)
[2018-04-21] MEDS: METHOCARBAMOL 750 MG TABLET PO SCH ×4 (09:36→22:46)
[2018-04-21] MEDS: CEFEPIME HCL 2 GM in DEXTROSE 5%-WATER 50 ML IV SCH ×2 (09:36→22:47)
[2018-04-21] MEDS: ENOXAPARIN SODIUM INJ 40 MG/0.4 ML DISP.SYRIN SUBCUT SCH (09:36)
--- NOTE | 2018-04-21 16:47 | PDOC PROGRESS REPORT ---
Subjective Progress Note for:: 04/21/18 Subjective:: Patient did participate in physical therapy session today No reported fever or chills. Her blood culture was reported no growth x 5 days. No chest pain or difficulty with breathing. No nausea, vomiting or abdominal pain. No fever or chills. Reason For Visit: HOSPITAL ACQUIRED LOBAR PNEUMONIA, OPIOD Physical Exam Vital Signs: Temp Pulse Resp BP Pulse Ox 98.1 F 68 19 124/52 L 97 04/21/18 12:00 04/21/18 14:00 04/21/18 12:00 04/21/18 12:00 04/21/18 12:00 Intake & Output 04/20/18 04/21/18 04/22/18 06:59 06:59 06:59 Intake Total 1661 852 200 Output Total 2150 2050 Balance -489 -1198 200 Weight 99.9 kg 98.5 kg Physical Exam: General appearance: PRESENT: no acute distress, obese Head exam: PRESENT: atraumatic, normocephalic Mouth exam: PRESENT: moist Respiratory exam: PRESENT: clear to auscultation izabella Cardiovascular exam: PRESENT: RRR. ABSENT: diastolic murmur, rubs, systolic murmur GI/Abdominal exam: PRESENT: normal bowel sounds, soft. ABSENT: distended, guarding, mass, organomegaly, rebound, tenderness Extremities exam: ABSENT: pedal edema Musculoskeletal exam: PRESENT: normal inspection, expressed lumbosacral spine region tenderness with motion Neurological exam: PRESENT: alert, awake, oriented to person, oriented to place, oriented to time, oriented to situation, CN II-XII grossly intact. ABSENT: motor sensory deficit Psychiatric exam: PRESENT: appropriate affect, normal mood. ABSENT: homicidal ideation, suicidal ideation Skin exam: PRESENT: lumbar fusion surgery site dressing is satisfactory. dry, warm Results Laboratory Results: 04/20/18 08:58 04/19/18 06:02 Impressions: KUB X-Ray 04/14/18 10:21 IMPRESSION: Mildly dilated gas and stool containing ascending colon. Additional stool noted throughout the sigmoid colon. Chest X-Ray 04/14/18 15:06 IMPRESSION: Patchy opacities within the right mid lung suggestive of pneumonia. Lumbar Spine CT 04/20/18 00:00 IMPRESSION: Postsurgical findings from L3-4 through L5-S1 as above. Moderate central canal stenosis at L2-3 Assessment & Plan - Diagnosis (1) Lobar pneumonia, unspecified organism Is this a current diagnosis for this admission?: Yes Plan: Continue Levofloxacin coverage. (2) Constipation due to opioid therapy Is this a current diagnosis for this admission?: Yes (3) Postoperative back pain Is this a current diagnosis for this admission?: Yes (4) Gram-negative pneumonia Is this a current diagnosis for this admission?: Yes Plan: D/C Cefepime. Continue IV Levofloxacin coverage. - Time Time Spent with patient: 25-34 minutes Medications reviewed and adjusted accordingly: Yes Anticipated discharge: SNF Within: Other - Inpatient Certification Based on my medical assessment, after consideration of the patient's comorbidities, presenting symptoms, or acuity I expect that the services needed warrant INPATIENT care.: Yes I certify that my determination is in accordance with my understanding of Medicare's requirements for reasonable and necessary INPATIENT services [42 CFR 412.3e].: Yes Medical Necessity: Significant Comorbidiites Make Outpatient Treatment Too Risky, Need Close Monitoring Due to Risk of Patient Decompensation, Need For IV Fluids, Need For Continuous Telemetry Monitoring, Need for Pain Control, Need for IV Antibiotics, Risk of Complication if Not Cared For in Hospital, Risk of Diagnosis Which Will Require Inpatient Eval/Care/Monitoring Post Hospital Care: D/C or Transfer Summary - Plan Summary Plan Summary: D/C Cefepime. Continue IV Levofloxacin coverage. Possible transfer to SNF for short term rehabilitation soon.
[2018-04-21] MEDS: DOCUSATE SODIUM 100 MG CAPSULE PO SCH (22:46)
[2018-04-22] MEDS: LANSOPRAZOLE 30 MG TAB.RAP.DR PO SCH (05:32)
[2018-04-22] MEDS: GABAPENTIN 300 MG CAPSULE PO SCH ×3 (05:32→21:41)
[2018-04-22] MEDS: METHOCARBAMOL 750 MG TABLET PO SCH ×4 (10:25→21:41)
[2018-04-22] MEDS: CEFEPIME HCL 2 GM in DEXTROSE 5%-WATER 50 ML IV SCH ×2 (10:25→21:42)
[2018-04-22] MEDS: POLYETHYLENE GLYCOL 3350 POWDER 17 GM/1 PACKET PO SCH (10:25)
[2018-04-22] MEDS: ENOXAPARIN SODIUM INJ 40 MG/0.4 ML DISP.SYRIN SUBCUT SCH (10:25)
[2018-04-22] MEDS: LUBIPROSTONE 24 MCG CAPSULE PO SCH ×2 (10:30→23:43)
--- NOTE | 2018-04-22 19:05 | PDOC PROGRESS REPORT ---
Subjective Progress Note for:: 04/22/18 Subjective:: Patient seen by the bedside admitted for pneumonia management Reason For Visit: HOSPITAL ACQUIRED LOBAR PNEUMONIA, OPIOD Physical Exam Vital Signs: Temp Pulse Resp BP Pulse Ox 98.8 F 106 H 24 H 128/78 H 94 04/22/18 17:14 04/22/18 16:00 04/22/18 16:00 04/22/18 16:00 04/22/18 16:00 Intake & Output 04/21/18 04/22/18 04/23/18 06:59 06:59 06:59 Intake Total 852 2410 1010 Output Total 2050 2200 800 Balance -1198 210 210 Weight 98.5 kg 94.8 kg General appearance: PRESENT: no acute distress Eye exam: PRESENT: PERRLA Respiratory exam: PRESENT: rhonchi Cardiovascular exam: PRESENT: +S1, +S2 GI/Abdominal exam: PRESENT: soft Neurological exam: PRESENT: alert Results Laboratory Results: 04/20/18 08:58 04/19/18 06:02 Impressions: KUB X-Ray 04/14/18 10:21 IMPRESSION: Mildly dilated gas and stool containing ascending colon. Additional stool noted throughout the sigmoid colon. Chest X-Ray 04/14/18 15:06 IMPRESSION: Patchy opacities within the right mid lung suggestive of pneumonia. Lumbar Spine CT 04/20/18 00:00 IMPRESSION: Postsurgical findings from L3-4 through L5-S1 as above. Moderate central canal stenosis at L2-3 Assessment & Plan - Diagnosis (1) Lobar pneumonia, unspecified organism Is this a current diagnosis for this admission?: Yes Plan: Continue treatment
[2018-04-22] MEDS: DOCUSATE SODIUM 100 MG CAPSULE PO SCH (21:41)
[2018-04-22] MEDS: GUAIFENESIN SYRP 200 MG/10 ML UDC PO PRN (21:41)
[2018-04-22] MEDS: HYDROMORPHONE HCL 2 MG TABLET PO PRN (21:42)
[2018-04-23] MEDS: LANSOPRAZOLE 30 MG TAB.RAP.DR PO SCH (05:28)
[2018-04-23] MEDS: GABAPENTIN 300 MG CAPSULE PO SCH ×3 (05:28→22:02)
[2018-04-23] MEDS: LUBIPROSTONE 24 MCG CAPSULE PO SCH ×2 (10:17→22:02)
[2018-04-23] MEDS: POLYETHYLENE GLYCOL 3350 POWDER 17 GM/1 PACKET PO SCH (10:17)
[2018-04-23] MEDS: ENOXAPARIN SODIUM INJ 40 MG/0.4 ML DISP.SYRIN SUBCUT SCH (10:24)
[2018-04-23] MEDS: CEFEPIME HCL 2 GM in DEXTROSE 5%-WATER 50 ML IV SCH ×2 (10:24→22:01)
[2018-04-23] MEDS: METHOCARBAMOL 750 MG TABLET PO SCH ×4 (10:24→22:02)
--- NOTE | 2018-04-23 17:57 | PDOC PROGRESS REPORT ---
Subjective Progress Note for:: 04/23/18 Subjective:: Patient seen by the bedside admitted for pneumonia management Reason For Visit: HOSPITAL ACQUIRED LOBAR PNEUMONIA, OPIOD Physical Exam Vital Signs: Temp Pulse Resp BP Pulse Ox 98.0 F 93 19 136/87 H 95 04/23/18 16:00 04/23/18 16:00 04/23/18 16:00 04/23/18 16:00 04/23/18 16:00 Intake & Output 04/22/18 04/23/18 04/24/18 06:59 06:59 06:59 Intake Total 2410 1700 50 Output Total 2200 1150 Balance 210 550 50 Weight 94.8 kg 95.2 kg General appearance: PRESENT: no acute distress Eye exam: PRESENT: PERRLA Respiratory exam: PRESENT: clear to auscultation izabella Cardiovascular exam: PRESENT: +S1, +S2 GI/Abdominal exam: PRESENT: soft Neurological exam: PRESENT: alert Results Laboratory Results: 04/20/18 08:58 04/19/18 06:02 Impressions: KUB X-Ray 04/14/18 10:21 IMPRESSION: Mildly dilated gas and stool containing ascending colon. Additional stool noted throughout the sigmoid colon. Chest X-Ray 04/14/18 15:06 IMPRESSION: Patchy opacities within the right mid lung suggestive of pneumonia. Lumbar Spine CT 04/20/18 00:00 IMPRESSION: Postsurgical findings from L3-4 through L5-S1 as above. Moderate central canal stenosis at L2-3 Assessment & Plan - Diagnosis (1) Lobar pneumonia, unspecified organism Is this a current diagnosis for this admission?: Yes Plan: Continue treatment
[2018-04-23] MEDS: DOCUSATE SODIUM 100 MG CAPSULE PO SCH (22:02)
[2018-04-24] MEDS: LANSOPRAZOLE 30 MG TAB.RAP.DR PO SCH (05:32)
[2018-04-24] MEDS: GABAPENTIN 300 MG CAPSULE PO SCH ×3 (05:32→22:21)
[2018-04-24] MEDS: LUBIPROSTONE 24 MCG CAPSULE PO SCH ×2 (10:18→22:21)
[2018-04-24] MEDS: METHOCARBAMOL 750 MG TABLET PO SCH ×4 (10:23→22:21)
[2018-04-24] MEDS: ENOXAPARIN SODIUM INJ 40 MG/0.4 ML DISP.SYRIN SUBCUT SCH (10:23)
[2018-04-24] MEDS: CEFEPIME HCL 2 GM in DEXTROSE 5%-WATER 50 ML IV SCH (10:24)
[2018-04-24] MEDS: POLYETHYLENE GLYCOL 3350 POWDER 17 GM/1 PACKET PO SCH (12:28)
--- NOTE | 2018-04-24 17:52 | PDOC PROGRESS REPORT ---
Subjective Progress Note for:: 04/24/18 Subjective:: Patient has been participating in transfer from bed to chair today. Back pain from muscle spasm is improving. Bowel movement satisfactory. No chest pain. There is coughing spells and episodes of wheezing. No fever or chills. No abdominal pain, nausea or vomiting. Reason For Visit: HOSPITAL ACQUIRED LOBAR PNEUMONIA, OPIOD Physical Exam Vital Signs: Temp Pulse Resp BP Pulse Ox 99.2 F 93 17 146/69 H 100 04/24/18 15:03 04/24/18 15:03 04/24/18 15:03 04/24/18 15:03 04/24/18 15:03 Intake & Output 04/23/18 04/24/18 04/25/18 06:59 06:59 06:59 Intake Total 1700 1610 50 Output Total 1150 1570 Balance 550 40 50 Weight 95.2 kg 96.2 kg Physical Exam: General appearance: PRESENT: no acute distress, obese Head exam: PRESENT: atraumatic, normocephalic Mouth exam: PRESENT: moist Respiratory exam: PRESENT: clear to auscultation izabella Cardiovascular exam: PRESENT: RRR. ABSENT: diastolic murmur, rubs, systolic murmur GI/Abdominal exam: PRESENT: normal bowel sounds, soft. ABSENT: distended, guarding, mass, organomegaly, rebound, tenderness Extremities exam: ABSENT: pedal edema Musculoskeletal exam: PRESENT: normal inspection, expressed lumbosacral spine region tenderness with motion Neurological exam: PRESENT: alert, awake, oriented to person, oriented to place, oriented to time, oriented to situation, CN II-XII grossly intact. ABSENT: motor sensory deficit Psychiatric exam: PRESENT: appropriate affect, normal mood. ABSENT: homicidal ideation, suicidal ideation Skin exam: PRESENT: lumbar fusion surgery site dressing is satisfactory. dry, warm Results Laboratory Results: 04/20/18 08:58 04/19/18 06:02 Impressions: KUB X-Ray 04/14/18 10:21 IMPRESSION: Mildly dilated gas and stool containing ascending colon. Additional stool noted throughout the sigmoid colon. Chest X-Ray 04/14/18 15:06 IMPRESSION: Patchy opacities within the right mid lung suggestive of pneumonia. Lumbar Spine CT 04/20/18 00:00 IMPRESSION: Postsurgical findings from L3-4 through L5-S1 as above. Moderate central canal stenosis at L2-3 Assessment & Plan - Diagnosis (1) Lobar pneumonia, unspecified organism Is this a current diagnosis for this admission?: Yes (2) Constipation due to opioid therapy Is this a current diagnosis for this admission?: Yes (3) Postoperative back pain Is this a current diagnosis for this admission?: Yes (4) Gram-negative pneumonia Is this a current diagnosis for this admission?: Yes - Time Time Spent with patient: 25-34 minutes Medications reviewed and adjusted accordingly: Yes Anticipated discharge: SNF Within: Other - Inpatient Certification Based on my medical assessment, after consideration of the patient's comorbidities, presenting symptoms, or acuity I expect that the services needed warrant INPATIENT care.: Yes I certify that my determination is in accordance with my understanding of Medicare's requirements for reasonable and necessary INPATIENT services [42 CFR 412.3e].: Yes Medical Necessity: Significant Comorbidiites Make Outpatient Treatment Too Risky, Need Close Monitoring Due to Risk of Patient Decompensation, Need For IV Fluids, Need For Continuous Telemetry Monitoring, Need for IV Antibiotics, Risk of Complication if Not Cared For in Hospital, Risk of Diagnosis Which Will Require Inpatient Eval/Care/Monitoring Post Hospital Care: D/C or Transfer Summary - Plan Summary Plan Summary: Continue current medication management. D/C environmental emergencies planner to evaluate possible transfer to SNF in next 24-48 hours if bed is available.
[2018-04-24] MEDS: DOCUSATE SODIUM 100 MG CAPSULE PO SCH (22:21)
[2018-04-25] MEDS: LANSOPRAZOLE 30 MG TAB.RAP.DR PO SCH (06:12)
[2018-04-25] MEDS: GABAPENTIN 300 MG CAPSULE PO SCH ×3 (06:12→21:35)
--- NOTE | 2018-04-25 08:14 | PDOC PROGRESS REPORT ---
Subjective Progress Note for:: 04/25/18 Subjective:: Patient reported episode of diarrhea this morning. There is associated abdominal pain. No nausea or vomiting. No fever or chills. No difficulty with breathing or chest pain. Reason For Visit: HOSPITAL ACQUIRED LOBAR PNEUMONIA, OPIOD Physical Exam Vital Signs: Temp Pulse Resp BP Pulse Ox 98.4 F 97 18 147/63 H 92 04/25/18 07:32 04/25/18 07:32 04/25/18 07:32 04/25/18 07:32 04/25/18 07:32 Intake & Output 04/24/18 04/25/18 04/26/18 06:59 06:59 06:59 Intake Total 1610 1050 Output Total 1570 1800 Balance 40 -750 Weight 96.2 kg 95.3 kg Physical Exam: General appearance: PRESENT: no acute distress, obese Head exam: PRESENT: atraumatic, normocephalic Mouth exam: PRESENT: moist Respiratory exam: PRESENT: clear to auscultation izabella Cardiovascular exam: PRESENT: RRR. ABSENT: diastolic murmur, rubs, systolic murmur GI/Abdominal exam: PRESENT: normal bowel sounds, soft. ABSENT: distended, guarding, mass, organomegaly, rebound, tenderness Extremities exam: ABSENT: pedal edema Musculoskeletal exam: PRESENT: normal inspection Neurological exam: PRESENT: alert, awake, oriented to person, oriented to place, oriented to time, oriented to situation, CN II-XII grossly intact. ABSENT: motor sensory deficit Psychiatric exam: PRESENT: appropriate affect, normal mood. ABSENT: homicidal ideation, suicidal ideation Skin exam: PRESENT: lumbar fusion surgery site dressing is satisfactory. dry, warm Results Laboratory Results: 04/20/18 08:58 04/19/18 06:02 Impressions: KUB X-Ray 04/14/18 10:21 IMPRESSION: Mildly dilated gas and stool containing ascending colon. Additional stool noted throughout the sigmoid colon. Chest X-Ray 04/14/18 15:06 IMPRESSION: Patchy opacities within the right mid lung suggestive of pneumonia. Lumbar Spine CT 04/20/18 00:00 IMPRESSION: Postsurgical findings from L3-4 through L5-S1 as above. Moderate central canal stenosis at L2-3 Assessment & Plan - Diagnosis (1) Lobar pneumonia, unspecified organism Is this a current diagnosis for this admission?: Yes (2) Constipation due to opioid therapy Is this a current diagnosis for this admission?: Yes (3) Postoperative back pain Is this a current diagnosis for this admission?: Yes (4) Gram-negative pneumonia Is this a current diagnosis for this admission?: Yes - Time Time Spent with patient: 25-34 minutes Medications reviewed and adjusted accordingly: Yes Anticipated discharge: SNF Within: Other - Inpatient Certification Based on my medical assessment, after consideration of the patient's comorbidities, presenting symptoms, or acuity I expect that the services needed warrant INPATIENT care.: Yes I certify that my determination is in accordance with my understanding of Medicare's requirements for reasonable and necessary INPATIENT services [42 CFR 412.3e].: Yes Medical Necessity: Significant Comorbidiites Make Outpatient Treatment Too Risky, Need Close Monitoring Due to Risk of Patient Decompensation, Need For IV Fluids, Need for Pain Control, Risk of Complication if Not Cared For in Hospital, Risk of Diagnosis Which Will Require Inpatient Eval/Care/Monitoring Post Hospital Care: D/C or Transfer Summary - Plan Summary Plan Summary: Obtain stool for C.difficile toxin titer. D/C Miralax and Amitiza usage. Continue all other current medication management. Possible transfer to SNF for rehabilitation tomorrow. Follow up on pending lab results.
[2018-04-25 08:34] LABS: ABSOLUTE BASOPHILS # (AUTO) 0.1 10^3/uL (0.0-0.2); ABSOLUTE EOSINOPHILS # (AUTO) 0.1 10^3/uL (0.0-0.6); ABSOLUTE LYMPHOCYTES (AUTO) 1.3 10^3/uL (0.5-4.7); ABSOLUTE MONOCYTES (AUTO) 1.5 10^3/uL (0.1-1.4); ABSOLUTE NEUT (AUTO) 9.8 10^3/uL (1.7-8.2); BASOPHILS % (AUTO) 0.5 % (0-2); EOSINOPHILS % (AUTO) 0.5 % (0-6); HEMATOCRIT 29.4 % (36.0-47.0); HEMOGLOBIN 9.8 g/dL (12.0-15.5); LYMPHOCYTES % (AUTO) 10.5 % (13-45); MEAN CORPUSCULAR HEMOGLOBIN 26.1 pg (27.0-33.4); MEAN CORPUSCULAR HGB CONC 33.4 g/dL (32.0-36.0); MEAN CORPUSCULAR VOLUME 78 fl (80-97); MONOCYTES % (AUTO) 12.1 % (3-13); PLATELET COUNT 465 10^3/uL (150-450); RED BLOOD COUNT 3.77 10^6/uL (3.72-5.28); RED CELL DISTRIBUTION WIDTH 16.9 % (11.5-14.0); SEGMENTED NEUTROPHILS % (AUTO) 76.4 % (42-78); TOTAL CELLS COUNTED % (AUTO) 100 %; WHITE BLOOD COUNT 12.8 10^3/uL (4.0-10.5)
[2018-04-25 08:55] LABS: ANION GAP 10 (5-19); BLOOD UREA NITROGEN 9 mg/dL (7-20); CALCIUM 8.5 mg/dL (8.4-10.2); CARBON DIOXIDE 25 mmol/L (22-30); CHLORIDE 99 mmol/L (98-107); GLUCOSE 98 mg/dL (75-110); POTASSIUM 3.6 mmol/L (3.6-5.0); SODIUM 133.8 mmol/L (137-145)
[2018-04-25] MEDS: METHOCARBAMOL 750 MG TABLET PO SCH ×4 (10:26→21:35)
[2018-04-25] MEDS: ENOXAPARIN SODIUM INJ 40 MG/0.4 ML DISP.SYRIN SUBCUT SCH (10:26)
[2018-04-25] MEDS: HYDROMORPHONE HCL 2 MG TABLET PO PRN (15:37)
[2018-04-25] MEDS: DOCUSATE SODIUM 100 MG CAPSULE PO SCH (21:35)
[2018-04-26] MEDS: LANSOPRAZOLE 30 MG TAB.RAP.DR PO SCH (05:18)
[2018-04-26] MEDS: GABAPENTIN 300 MG CAPSULE PO SCH ×3 (05:18→22:22)
[2018-04-26] MEDS: GUAIFENESIN SYRP 200 MG/10 ML UDC PO PRN (05:21)
[2018-04-26] MEDS: ENOXAPARIN SODIUM INJ 40 MG/0.4 ML DISP.SYRIN SUBCUT SCH (09:22)
[2018-04-26] MEDS: METHOCARBAMOL 750 MG TABLET PO SCH ×4 (09:22→22:22)
[2018-04-26 09:50] LABS: APPEARANCE,URINE SLIGHTLY-CLOUDY; BILIRUBIN,URINE NEGATIVE (NEGATIVE); COLOR,URINE YELLOW; GLUCOSE, URINE NEGATIVE (NEGATIVE); KETONES,URINE NEGATIVE (NEGATIVE); LEUKOCYTE ESTERASE,URINE TRACE (NEGATIVE); NITRITE,URINE NEGATIVE (NEGATIVE); PROTEIN,URINE 30 mg/dL (NEGATIVE); URINE SPECIFIC GRAVITY 1.012; UROBILINOGEN,URINE NEGATIVE mg/dL (<2.0)
[2018-04-26 11:23] LABS: ABSOLUTE EOSINOPHILS # (AUTO) 0.1 10^3/uL (0.0-0.6); ABSOLUTE LYMPHOCYTES (AUTO) 1.3 10^3/uL (0.5-4.7); ABSOLUTE MONOCYTES (AUTO) 1.3 10^3/uL (0.1-1.4); BASOPHILS % (AUTO) 0.3 % (0-2); EOSINOPHILS % (AUTO) 0.7 % (0-6); HEMATOCRIT 31.7 % (36.0-47.0); HEMOGLOBIN 10.5 g/dL (12.0-15.5); LYMPHOCYTES % (AUTO) 10.9 % (13-45); MEAN CORPUSCULAR HGB CONC 33.2 g/dL (32.0-36.0); MEAN CORPUSCULAR VOLUME 78 fl (80-97); MONOCYTES % (AUTO) 11.4 % (3-13); PLATELET COUNT 487 10^3/uL (150-450); RED BLOOD COUNT 4.04 10^6/uL (3.72-5.28); SEGMENTED NEUTROPHILS % (AUTO) 76.7 % (42-78); TOTAL CELLS COUNTED % (AUTO) 100 %; WHITE BLOOD COUNT 11.8 10^3/uL (4.0-10.5)
[2018-04-26] MEDS: NORMAL SALINE 1000 ML 1,000 ML IV PRN (12:48)
[2018-04-26] MEDS: ACETAMINOPHEN 325 MG TABLET PO PRN (16:38)
[2018-04-26] MEDS: DOCUSATE SODIUM 100 MG CAPSULE PO SCH (22:22)
[2018-04-27] MEDS: GABAPENTIN 300 MG CAPSULE PO SCH ×3 (05:20→21:54)
[2018-04-27] MEDS: LANSOPRAZOLE 30 MG TAB.RAP.DR PO SCH (05:20)
[2018-04-27] MEDS: METHOCARBAMOL 750 MG TABLET PO SCH ×4 (10:07→21:54)
[2018-04-27] MEDS: ENOXAPARIN SODIUM INJ 40 MG/0.4 ML DISP.SYRIN SUBCUT SCH (10:08)
--- NOTE | 2018-04-27 18:13 | PDOC PROGRESS REPORT ---
Subjective Progress Note for:: 04/27/18 Subjective:: Patient continue to participate in physical therapy session. She denied chest pain or difficulty with breathing. No nausea, vomiting or abdominal pain. Reason For Visit: HOSPITAL ACQUIRED LOBAR PNEUMONIA, OPIOD Physical Exam Vital Signs: Temp Pulse Resp BP Pulse Ox 98.0 F 86 20 160/63 H 95 04/27/18 16:08 04/27/18 16:08 04/27/18 16:08 04/27/18 16:08 04/27/18 16:08 Intake & Output 04/26/18 04/27/18 04/28/18 06:59 06:59 06:59 Intake Total 1420 1940 350 Output Total 1400 1500 600 Balance 20 440 -250 Weight 92.3 kg 91.2 kg Physical Exam: General appearance: PRESENT: no acute distress, obese Head exam: PRESENT: atraumatic, normocephalic Mouth exam: PRESENT: moist Respiratory exam: PRESENT: clear to auscultation izabella Cardiovascular exam: PRESENT: RRR. ABSENT: diastolic murmur, rubs, systolic murmur GI/Abdominal exam: PRESENT: normal bowel sounds, soft. ABSENT: distended, guarding, mass, organomegaly, rebound, tenderness Extremities exam: ABSENT: pedal edema Musculoskeletal exam: PRESENT: normal inspection Neurological exam: PRESENT: alert, awake, oriented to person, oriented to place, oriented to time, oriented to situation, CN II-XII grossly intact. ABSENT: motor sensory deficit Psychiatric exam: PRESENT: appropriate affect, normal mood. ABSENT: homicidal ideation, suicidal ideation Skin exam: PRESENT: lumbar fusion surgery site dressing is satisfactory. dry, warm Results Laboratory Results: 04/26/18 11:00 04/25/18 08:04 04/26/18 09:24 Catheterized Urine Urine Culture - Final C.albicans/C.dubliniensis Impressions: KUB X-Ray 04/14/18 10:21 IMPRESSION: Mildly dilated gas and stool containing ascending colon. Additional stool noted throughout the sigmoid colon. Chest X-Ray 04/14/18 15:06 IMPRESSION: Patchy opacities within the right mid lung suggestive of pneumonia. Lumbar Spine CT 04/20/18 00:00 IMPRESSION: Postsurgical findings from L3-4 through L5-S1 as above. Moderate central canal stenosis at L2-3 Assessment & Plan - Diagnosis (1) Lobar pneumonia, unspecified organism Is this a current diagnosis for this admission?: Yes (2) Constipation due to opioid therapy Is this a current diagnosis for this admission?: Yes (3) Postoperative back pain Is this a current diagnosis for this admission?: Yes (4) Gram-negative pneumonia Is this a current diagnosis for this admission?: Yes (5) Andreina cystitis Is this a current diagnosis for this admission?: Yes Plan: D/C Cadet catheter. Start on Diflucan 100 mg po daily. Encouraged continue mobility. D/C IV fluid. Emphasized adequate oral fluid intake. - Time Time Spent with patient: 25-34 minutes Medications reviewed and adjusted accordingly: Yes Anticipated discharge: SNF Within: Other - Inpatient Certification Based on my medical assessment, after consideration of the patient's comorbidities, presenting symptoms, or acuity I expect that the services needed warrant INPATIENT care.: Yes I certify that my determination is in accordance with my understanding of Medicare's requirements for reasonable and necessary INPATIENT services [42 CFR 412.3e].: Yes Medical Necessity: Significant Comorbidiites Make Outpatient Treatment Too Risky, Need Close Monitoring Due to Risk of Patient Decompensation, Need For Continuous Telemetry Monitoring, Risk of Complication if Not Cared For in Hospital, Risk of Diagnosis Which Will Require Inpatient Eval/Care/Monitoring Post Hospital Care: D/C or Transfer Summary - Plan Summary Plan Summary: See above outlined care plan.
[2018-04-27] MEDS ORDERED: FLUCONAZOLE 100 MG TABLET PO SCH (19:00)
[2018-04-27] MEDS: ACETAMINOPHEN 325 MG TABLET PO PRN (21:54)
[2018-04-27] MEDS: DOCUSATE SODIUM 100 MG CAPSULE PO SCH (21:54)
[2018-04-28] MEDS: GABAPENTIN 300 MG CAPSULE PO SCH (08:25)
[2018-04-28] MEDS: LANSOPRAZOLE 30 MG TAB.RAP.DR PO SCH (08:26)
--- NOTE | 2018-04-28 08:41 | PDOC TRANSFER SUMMARY ---
General - Admit/Disc Date/PCP Admission Date/Primary Care Provider: 04/14/18 16:10 PATRICIA SR Discharge Date: 04/28/18 - Discharge Diagnosis (1) Lobar pneumonia, unspecified organism Is this a current diagnosis for this admission?: Yes (2) Constipation due to opioid therapy Is this a current diagnosis for this admission?: Yes (3) Postoperative back pain Is this a current diagnosis for this admission?: Yes (4) Gram-negative pneumonia Is this a current diagnosis for this admission?: Yes (5) Andreina cystitis Is this a current diagnosis for this admission?: Yes - Additional Information Prescriptions: Fluconazole [Diflucan 100 mg Tablet] 100 mg PO QPM #5 tablet Methocarbamol [Robaxin 750 mg Tablet] 750 mg PO QIDP PRN #30 tablet PRN Reason: Home Medications: Gabapentin [Neurontin 300 mg Capsule] 300 mg PO Q8 04/14/18 Hydrochlorothiazide [Hydrodiuril 25 mg Tablet] 25 mg PO DAILY 04/14/18 Hydrocodone/Acetaminophen [Cannelton 5-325 mg Tablet] 1 tab PO BIDP PRN 04/14/18 Hydroxyzine HCl [Atarax 50 mg Tablet] 50 mg PO TIDP PRN 04/14/18 Meloxicam [Mobic] 15 mg PO DAILY 04/14/18 Pantoprazole Sodium [Protonix] 40 mg PO DAILY 04/14/18 Docusate Sodium [Colace 100 mg Capsule] 200 mg PO QHS capsule 04/28/18 Fluconazole [Diflucan 100 mg Tablet] 100 mg PO QPM #5 tablet 04/28/18 Methocarbamol [Robaxin 750 mg Tablet] 750 mg PO QIDP PRN #30 tablet 04/28/18 History of Present Illness Admission Date/PCP: 04/14/18 16:10 PATRICIA SR History of Present Illness: LULY VERDIN is a 82 year old female known to my practice who underwent lumbar fusion surgery for degenerative disc disease with chronic back pain at [facility]. She was transferred to [facility] for short term rehabilitation. She was transferred from the SNF due to her persistent complain of worsening intermittent back pain despite administration of her prescribed pain medication. There was concern about pain medication inadequacy for her pain management. There was report of lack of bowel movement for couple of days. She denied any nausea, vomiting, or abdominal pain. She reported fairly adequate food and fluid intake. Her initial evaluation in the ED was remarkable for abdominal KUB that revealed right sided ascending colon dilatation and rectal examination without fecal impaction. Her initial management include IV fluid and pain medication management. Her subsequent evaluation revealed temperature of 102.3F with leukocytosis and altered mental status. In view of the latter development her initial plan to return to [facility] with Linzess and Mag Citrate administration was cancelled and she was advised admission to observation bed. Subsequent chest X ray revealed right middle lobe airspace disease process raising concern for hospital acquired pneumonia in view of her recent surgery and [facility] environment exposure. Her morbidities include hypertension, NEHAL D, Osteoarthritis, and degenerative disc disease with chronic back pain s/p spinal fusion surgery on 04/04/2018. Hospital Course Hospital Course: Patient was managed with IV antibiotic for her lobar pneumonia. Her blood culture grew Morganella Morganii in 1 set of blood culture. She was adequately covered with IV Ceftriaxone and Levofloxacin. Her presenting constipation was attributed to opiate usage for pain management. She was treated with Amitiza, Miralax, stool softener and several doses of soap sub enema. Presently, patient is moving her bowel satisfactorily off the Amitiza and Miralax. She had indwelling stone catheter in during earlier part of her hospitalization due to her back pain. Her urine analysis and culture suggested possible infectious process and her urine culture grew Andreina species over 100,000 col / mL. She is currently on oral Diflucan therapy with commendation for 7 days total treatment. She is day # 2 of therapy today. Her pain has been satisfactorily controlled and she is participating in physical therapy session. She is agreeable to transfer to [facility] today for short term rehabilitation and she will need home health service with physical therapy upon discharge. She will follow up in the office as instructed upon discharge from the SNF. SNF staff should call office for appointment before discharge from the facility. Physical Exam Vital Signs: Temp Pulse Resp BP Pulse Ox 98.2 F 104 H 21 H 158/69 H 92 04/28/18 00:21 04/28/18 07:00 04/28/18 00:21 04/28/18 00:21 04/28/18 00:21 Intake & Output 04/27/18 04/28/18 04/29/18 06:59 06:59 06:59 Intake Total 1940 1075 Output Total 1500 603 Balance 440 472 Weight 91.2 kg 93.8 kg General appearance: PRESENT: no acute distress, obese Head exam: PRESENT: atraumatic, normocephalic Mouth exam: PRESENT: moist Respiratory exam: PRESENT: clear to auscultation izabella Cardiovascular exam: PRESENT: RRR. ABSENT: diastolic murmur, rubs, systolic murmur GI/Abdominal exam: PRESENT: normal bowel sounds, soft. ABSENT: distended, guarding, mass, organomegaly, rebound, tenderness Extremities exam: ABSENT: pedal edema Musculoskeletal exam: PRESENT: normal inspection Neurological exam: PRESENT: alert, awake, oriented to person, oriented to place, oriented to time, oriented to situation, CN II-XII grossly intact. ABSENT: motor sensory deficit Psychiatric exam: PRESENT: appropriate affect, normal mood. ABSENT: homicidal ideation, suicidal ideation Skin exam: PRESENT: lumbar fusion surgery site dressing is healing satisfactorily. dry, warm Results Laboratory Results: 04/26/18 11:00 04/25/18 08:04 04/26/18 09:24 Catheterized Urine Urine Culture - Final C.albicans/C.dubliniensis Impressions: KUB X-Ray 04/14/18 10:21 IMPRESSION: Mildly dilated gas and stool containing ascending colon. Additional stool noted throughout the sigmoid colon. Chest X-Ray 04/14/18 15:06 IMPRESSION: Patchy opacities within the right mid lung suggestive of pneumonia. Lumbar Spine CT 04/20/18 00:00 IMPRESSION: Postsurgical findings from L3-4 through L5-S1 as above. Moderate central canal stenosis at L2-3 Transfer Plan - Disposition Transfer Plan: Transfer to [facility] today for short term rehabilitation. Follow up in the office as instructed upon discharge from [facility]. - Time Spent with Patient Time spent with patient: Less than 30 Minutes Qualifiers - * PATIENT BEING DISCHARGED WITH ANY OF THE FOLLOWING DIAGNOSIS: No Plan Discharge Plan: Transfer to [facility] today for short term rehabilitation. Follow up in the office as instructed upon discharge from [facility]. Time Spent: Greater than 30 Minutes - I had extensive discussion with patient regarding post acute-care care plan at her bedside this moring.
[2018-04-28] MEDS: METHOCARBAMOL 750 MG TABLET PO SCH (09:58)
[2018-04-28] MEDS: ENOXAPARIN SODIUM INJ 40 MG/0.4 ML DISP.SYRIN SUBCUT SCH (09:59)
[2018-04-28 12:52] VITALS: BP 150/68
--- NOTE | 2018-04-28 16:20 | PDOC PROGRESS REPORT ---
Subjective Progress Note for:: 05/24/18 Subjective:: Patient denied chest pain or difficulty with breathing. No nausea, vomiting or abdominal pain. Her back pain is fairly controlled. Reason For Visit: HOSPITAL ACQUIRED LOBAR PNEUMONIA, OPIOD Physical Exam Vital Signs: Temp Pulse Resp BP Pulse Ox 98.0 F 93 20 150/68 H 94 04/28/18 12:23 04/28/18 12:23 04/28/18 12:23 04/28/18 12:23 04/28/18 12:23 Intake & Output 04/27/18 04/28/18 04/29/18 06:59 06:59 06:59 Intake Total 1940 1075 446 Output Total 1500 603 Balance 440 472 446 Weight 91.2 kg 93.8 kg Physical Exam: General appearance: PRESENT: no acute distress, obese Head exam: PRESENT: atraumatic, normocephalic Mouth exam: PRESENT: moist Respiratory exam: PRESENT: clear to auscultation izabella Cardiovascular exam: PRESENT: RRR. ABSENT: diastolic murmur, rubs, systolic murmur GI/Abdominal exam: PRESENT: normal bowel sounds, soft. ABSENT: distended, guarding, mass, organomegaly, rebound, tenderness Extremities exam: ABSENT: pedal edema Musculoskeletal exam: PRESENT: normal inspection Neurological exam: PRESENT: alert, awake, oriented to person, oriented to place, oriented to time, oriented to situation, CN II-XII grossly intact. ABSENT: motor sensory deficit Psychiatric exam: PRESENT: appropriate affect, normal mood. ABSENT: homicidal ideation, suicidal ideation Skin exam: PRESENT: lumbar fusion surgery site dressing is satisfactory. dry, warm Results Laboratory Results: 04/26/18 11:00 04/25/18 08:04 04/26/18 09:24 Catheterized Urine Urine Culture - Final C.albicans/C.dubliniensis Impressions: KUB X-Ray 04/14/18 10:21 IMPRESSION: Mildly dilated gas and stool containing ascending colon. Additional stool noted throughout the sigmoid colon. Chest X-Ray 04/14/18 15:06 IMPRESSION: Patchy opacities within the right mid lung suggestive of pneumonia. Lumbar Spine CT 04/20/18 00:00 IMPRESSION: Postsurgical findings from L3-4 through L5-S1 as above. Moderate central canal stenosis at L2-3 Assessment & Plan - Diagnosis (1) Lobar pneumonia, unspecified organism Is this a current diagnosis for this admission?: Yes (2) Constipation due to opioid therapy Is this a current diagnosis for this admission?: Yes (3) Postoperative back pain Is this a current diagnosis for this admission?: Yes (4) Gram-negative pneumonia Is this a current diagnosis for this admission?: Yes (5) Andreina cystitis Is this a current diagnosis for this admission?: Yes - Time Time Spent with patient: 25-34 minutes Medications reviewed and adjusted accordingly: Yes Anticipated discharge: SNF Within: Other - Inpatient Certification Based on my medical assessment, after consideration of the patient's comorbidities, presenting symptoms, or acuity I expect that the services needed warrant INPATIENT care.: Yes I certify that my determination is in accordance with my understanding of Medicare's requirements for reasonable and necessary INPATIENT services [42 CFR 412.3e].: Yes Medical Necessity: Significant Comorbidiites Make Outpatient Treatment Too Risky, Need Close Monitoring Due to Risk of Patient Decompensation, Need For IV Fluids, Need For Continuous Telemetry Monitoring, Need for Pain Control, Risk of Complication if Not Cared For in Hospital, Risk of Diagnosis Which Will Require Inpatient Eval/Care/Monitoring Post Hospital Care: D/C or Transfer Summary - Plan Summary Plan Summary: Late entry due to oversight by myself. Obtain U/A with microscopy and urine culture due to concern for leukocytosis and possible UTI. See physician orders as per outlined care plan.
== END 2018-04-28 14:20 | DRG 194 ==
LOC: ER 08:59 → EH 16:10 → OBSVTOIN 16:10 → 3W 19:46 → 4S 04-19 00:34
PROVIDERS: ADMIT Internal Medicine Geriatric Medicine; ATTEND Internal Medicine Geriatric Medicine
PROC: 30233N1 Transfusion of Nonautologous Red Blood Cells into Peripheral Vein, Percutaneous Approach (ICD-10-PCS; principal; 2018-04-19)
DX: J18.1 Lobar pneumonia, unspecified organism (principal); B37.41 Candidal cystitis and urethritis; D64.9 Anemia, unspecified; T40.2X5A Adverse effect of other opioids, initial encounter; K59.03 Drug induced constipation; G89.18 Other acute postprocedural pain; I10 Essential (primary) hypertension; K21.9 Gastro-esophageal reflux disease without esophagitis; M54.9 Dorsalgia, unspecified; M19.90 Unspecified osteoarthritis, unspecified site; M51.36 Other intervertebral disc degeneration, lumbar region; B96.89 Other specified bacterial agents as the cause of diseases classified elsewhere; Y92.122 Bedroom in nursing home as the place of occurrence of the external cause
CPT/HCPCS: 36415; 36430; 71045; 72131; 74018; 80048; 80053; 81001; 85025; 86850; 86900; 86901; 86920; 87040; 87077; 87086; 87186; 87493; 96361; 96365; 96366; 96375; 96376; 99285; J0692; J1200; J1650; J1956; J2060; J2270; J2405; J2765; J3370; J3490; J7030; J7040; J7060; P9016

== ENCOUNTER → 2018-06-05 | Outpatient (CLI) | payer MEDICARE ==
--- NOTE | 2018-06-05 17:15 | RADIOLOGY REPORT (SQ) ---
EXAM DESCRIPTION: L SPINE FLEX/EXT ONLY COMPLETED DATE/TIME: 06/05/2018 4:51 pm REASON FOR STUDY: LUMBAR RADICULOPATHY COMPARISON: 02/27/[address] lumbar spine 04/20/2018 NUMBER OF VIEWS: Lateral flexion lumbar spine Lateral extension lumbar spine TECHNIQUE: Lateral flexion lumbar spine Lateral extension lumbar spine LIMITATIONS: None. FINDINGS: MINERALIZATION: Normal. SEGMENTATION: Normal. No transitional anatomy. ALIGNMENT: Normal. FLEXION/EXTENSION: No instability. Particularly, no instability at the L2-3 level VERTEBRAE: Maintained height. No fracture or worrisome bone lesion. DISCS: High-grade disc space loss of height at L2-3. Old fusion at L5-S1. More recent fusion at L3- 4 and L4-5 POSTERIOR ELEMENTS: Bilateral laminectomies from L3 through L5 HARDWARE: Hardware from L3 through L5 OTHER: Heavily calcified abdominal aorta with iliac stents IMPRESSION: No instability on flexion/extension Fusion from L3 through S1 TECHNICAL DOCUMENTATION: JOB ID: [id number]- All Rights Reserved Reading location - IP/workstation name: [email or web address]
== END ==
LOC: RAD 16:09
PROVIDERS: ATTEND Specialist
DX: M54.16 Radiculopathy, lumbar region (principal)
CPT/HCPCS: 72120

== ENCOUNTER → 2018-06-29 | Outpatient (CLI) | payer MEDICARE ==
--- NOTE | 2018-06-29 17:39 | RADIOLOGY REPORT (SQ) ---
EXAM DESCRIPTION: L SPINE FLEX/EXT ONLY COMPLETED DATE/TIME: 06/29/2018 5:10 pm REASON FOR STUDY: LUMBAR RADICULOPATHY COMPARISON: None. NUMBER OF VIEWS: Two-view TECHNIQUE: Lateral views were obtained in flexion and extension. LIMITATIONS: None. FINDINGS: MINERALIZATION: Normal. SEGMENTATION: Normal. No transitional anatomy. ALIGNMENT: There is grade 1 anterolisthesis of L4 on L5. FLEXION/EXTENSION: No instability. VERTEBRAE: Maintained height. No fracture or worrisome bone lesion. DISCS: Disc space is narrowed at L2-3. Disc implants are present at L3-4, L4-5, and L5-S1. POSTERIOR ELEMENTS: Pedicles and facets are intact. No pars defect or posterior arch defects. HARDWARE: Posterior rods extend from L3-L5. There are screws through the pedicles. Additional screw s through the pedicles are present at S1. OTHER: No other significant finding. IMPRESSION: Surgical changes. Stable anterolisthesis of L4 on L5. Degenerative disc disease. No instability on flexion/ extension. TECHNICAL DOCUMENTATION: JOB ID: [id number] [email or web address]- All Rights Reserved Reading location - IP/workstation name: [email or web address]
== END ==
LOC: RAD 16:44
PROVIDERS: ATTEND Specialist
DX: M54.16 Radiculopathy, lumbar region (principal)
CPT/HCPCS: 72120

== ENCOUNTER → 2018-07-10 | Outpatient (CLI) | payer MEDICARE ==
--- NOTE | 2018-07-10 15:27 | RADIOLOGY REPORT (SQ) ---
EXAM DESCRIPTION: MRI LUMBAR SPINE COMBO COMPLETED DATE/TIME: 07/10/2018 1:58 pm REASON FOR STUDY: M79.609 PAIN IN UNSPECIFIED LIMB M79.609 PAIN IN UNSPECIFIED LIMB COMPARISON: 08/04/2017 TECHNIQUE: Sagittal and Axial imaging includes T1, T1 post gadolinium, T2, STIR and gradient echo se quences. Coronal T2/HASTE imaging. CONTRAST TYPE AND DOSE: 15 mL Dotarem. RENAL FUNCTION: Not indicated. ACR Type II contrast agent associated with few, if any, unconfounded cases of NSF LIMITATIONS: Motion. Metal artifact. FINDINGS: VISUALIZED UPPER ABDOMEN: Limited evaluation. No acute or suspicious findings suggested. SEGMENTATION: No transitional anatomy. The lowest well-developed disc space is labeled L5-S1. ALIGNMENT: Grade 1 spondylolisthesis L2-3. Moderate convex left scoliosis. VERTEBRAE: Intact. No fractures. BONE MARROW: Normal. No marrow replacement or reactive changes. DISC SIGNAL: Desiccation multiple levels. POSTERIOR ELEMENTS: See below. HARDWARE: Posterior fusion L3- 4, L4-5, L5-S1. CORD AND CONUS: Normal in size and signal intensity. Conus at the appropriate level. SOFT TISSUES: See below. L1-L2: No significant spinal stenosis or exit foraminal stenosis. L2-L3: Mild -moderate spinal stenosis due to chronic central disc protrusion and malalignment. L3-L4: Interval posterior decompression and fusion. Expected postsurgical changes. L4-L5: Interval posterior decompression and fusion. Expected postoperative changes in the posterior soft tissues. L5-S1: Prior bilateral laminectomy and posterior fusion. No significant spinal stenosis. LOWER THORACIC: Incompletely imaged. No stenosis seen. SACRUM: Visualized upper sacrum intact. ENHANCEMENT: No abnormal enhancement. OTHER: No other significant findings. IMPRESSION: Interval posterior decompression L3- 4 and L4-5. No evidence of postoperative complicat ion. TECHNICAL DOCUMENTATION: JOB ID: [id number] [email or web address]- All Rights Reserved Reading location - IP/workstation name: [email or web address]
== END ==
LOC: RAD 12:51
PROVIDERS: ATTEND Specialist
DX: M79.605 Pain in left leg (principal)
CPT/HCPCS: 72158; A9576

== ENCOUNTER → 2018-07-17 | Outpatient (CLI) | payer MEDICARE ==
--- NOTE | 2018-07-17 15:49 | RADIOLOGY REPORT (SQ) ---
EXAM DESCRIPTION: CT LUMBAR SPINE WITHOUT COMPLETED DATE/TIME: 07/17/2018 3:22 pm REASON FOR STUDY: M54.16 RADICULOPATHY, LUMBAR REGION M54.16 RADICULOPATHY, LUMBAR REGION COMPARISON: 04/20/2018 TECHNIQUE: Axial images acquired through the lumbar spine without intravenous contrast. Images revi ewed with lung, soft tissue and bone windows. Reconstructed coronal and sagittal MPR images reviewed . All images stored on PACS. All CT scanners at this facility use dose modulation, iterative reconstruction, and/or weight based d osing when appropriate to reduce radiation dose to as low as reasonably achievable (ALARA). [facility]: Dose Right [facility]: CareDose [facility]: Dose Right [facility]: Teradose 4D [facility]: 3D FUTURE VISION II RADIATION DOSE: CT Rad equipment meets quality standard of care and radiation dose reduction techniq ues were employed. CTDIvol: 19.5 mGy. DLP: 637 mGy-cm. mGy. LIMITATIONS: None. FINDINGS: Unchanged convex left scoliosis. Grade 1 anterolisthesis L4 relative to L5 status post po sterior decompression and fusion L3- 4, L4-5, L5-S1. Instrumentation is intact. IMPRESSION: Stable appearance. No significant change. TECHNICAL DOCUMENTATION: JOB ID: [id number] Quality ID # [id number]: Final reports with documentation of one or more dose reduction techniques (e.g., Au tomated exposure control, adjustment of the mA and/or kV according to patient size, use of iterative reconstruction technique) 2010 [employer]- All Rights Reserved Reading location - IP/workstation name: [email or web address]
== END ==
LOC: RAD 15:00
PROVIDERS: ATTEND Specialist
DX: M54.16 Radiculopathy, lumbar region (principal)
CPT/HCPCS: 72131

== ENCOUNTER → 2019-01-19 | Outpatient (CLI) | payer MEDICARE ==
--- NOTE | 2019-01-19 15:06 | WOMENS IMAGING REPORT ---
EXAM DESCRIPTION: 3D SCREENING MAMMO BILAT COMPLETED DATE/TIME: 01/19/2019 2:41 pm REASON FOR STUDY: Z12.31 SCREENING MAMMO Z12.31 ENCNTR SCREEN MAMMOGRAM FOR MALIGNANT NEOPLASM OF B RE COMPARISON: Multiple since 2009 EXAM PARAMETERS: Views: Standard craniocaudal and mediolateral oblique views of each breast recorded using digital acquisition and breast tomosynthesis. Read with the assistance of CAD. .[facility] - [employer] Inspector Version 9.2 LIMITATIONS: None. FINDINGS: No suspicious masses, suspicious calcifications or architectural distortion. No areas of c oncern. IMPRESSION: NEGATIVE MAMMOGRAM. BIRADS 1. BREAST DENSITY: b. There are scattered areas of fibroglandular density. BIRAD: ASSESSMENT: 1 NEGATIVE RECOMMENDATION: ROUTINE SCREENING Please continue yearly bilateral screening mammography/tomosynthesis in December 2019 COMMENT: The patient has been notified of the results by letter per [place] requirements. Additional no tification policies are in place for contacting patient with suspicious or incomplete findings. Quality ID #[id number]: The [employer] recommends an annual screening mammogram for women aged 40 years or over. This facility utilizes a reminder system to ensure that all patients receive reminder letters, and/or direct phone calls for appointments. This includes reminders for routine scr eening mammograms, diagnostic mammograms, or other Breast Imaging Interventions when appropriate. Th is patient will be placed in the appropriate reminder system. TECHNICAL DOCUMENTATION: FINDING NUMBER: (1) ASSESSMENT: (1) JOB ID: [id number] [employer]- All Rights Reserved Reading location - IP/workstation name: [email or web address]
== END ==
LOC: WI 14:10
PROVIDERS: ATTEND Internal Medicine Geriatric Medicine
DX: Z12.31 Encounter for screening mammogram for malignant neoplasm of breast (principal)
CPT/HCPCS: 77063; 77067

== ENCOUNTER → 2020-01-21 | Outpatient (CLI) | payer MEDICARE ==
--- NOTE | 2020-01-21 14:07 | WOMENS IMAGING REPORT ---
EXAM DESCRIPTION: 3D SCREENING MAMMO BILAT IMAGES COMPLETED DATE/TIME: 01/21/2020 1:44 pm REASON FOR STUDY: Z12.31 ENCOUNTER FOR SCREENING MAMMOGRAM FOR MALIGNANT NEOPLASM OF BREAST Z12.31 ENCNTR SCREEN MAMMOGRAM FOR MALIGNANT NEOPLASM OF YAN COMPARISON: 2017 and subsequent. EXAM PARAMETERS: Views: Standard craniocaudal and mediolateral oblique views of each breast recorded using digital acquisition and breast tomosynthesis. Read with the assistance of CAD. .[facility] - [employer] Instrument Mechanic Version 9.2 LIMITATIONS: None. FINDINGS: No suspicious masses, suspicious calcifications or architectural distortion. No areas of c oncern. IMPRESSION: NEGATIVE MAMMOGRAM. BIRADS 1. BREAST DENSITY: b. There are scattered areas of fibroglandular density. BIRAD: ASSESSMENT: 1 NEGATIVE RECOMMENDATION: ROUTINE SCREENING COMMENT: The patient has been notified of the results by letter per MQSA requirements. Additional no tification policies are in place for contacting patient with suspicious or incomplete findings. Quality ID #[id number]: The [employer] recommends an annual screening mammogram for women aged 40 years or over. This facility utilizes a reminder system to ensure that all patients receive reminder letters, and/or direct phone calls for appointments. This includes reminders for routine scr eening mammograms, diagnostic mammograms, or other Breast Imaging Interventions when appropriate. Th is patient will be placed in the appropriate reminder system. TECHNICAL DOCUMENTATION: FINDING NUMBER: (1) ASSESSMENT: (1) JOB ID: [id number] 2010 [employer]- All Rights Reserved Reading location - IP/workstation name: [email or web address]
== END ==
LOC: WI 13:06
PROVIDERS: ATTEND Internal Medicine Geriatric Medicine
DX: Z12.31 Encounter for screening mammogram for malignant neoplasm of breast (principal)
CPT/HCPCS: 77063; 77067